=== PATIENT | female | born 1940 | race Caucasian/White ===

== ENCOUNTER → 2017-01-17 | Outpatient (CLI) | payer OTHER | LOC: FIMAGING 09:31 → EDSTATUS 09:32 | PROVIDERS: ATTEND Family Medicine | DX: K59.00 Constipation, unspecified (principal) ==

== ENCOUNTER 2017-12-11 20:51 | Inpatient (IN) | payer OTHER ==
[2017-12-11 21:43] LABS: PLATELET COUNT 151 10^3/uL (150-400)
--- NOTE | 2017-12-11 22:14 | EDPHY ---
H & P Stated Complaint: R abd pain, back pain, vomitting Time Seen by Provider: 12/11/17 22:01 HPI/ROS: CHIEF COMPLAINT: Right upper quadrant pain HISTORY OF PRESENT ILLNESS: Patient is a 77-year-old female who comes to the emergency department complaining of right upper quadrant pain that radiates to her back. It feels similar to her gallbladder pain accept her gallbladder [place] [address] Turner. She does have a history of renal failure and is on dialysis. She denies cardiac or pulmonary history. She has not had any urinary or vaginal symptoms. No diarrhea. She did vomit once this evening nonbloody. No fevers. REVIEW OF SYSTEMS: Constitutional: denies: chills, fever, recent illness, recent injury EENTM: denies: blurred vision, double vision, nose congestion Respiratory: denies: cough, shortness of breath Cardiac: denies: chest pain, irregular heart rate, lightheadedness, palpitations Gastrointestinal/Abdominal: See HPI Genitourinary: denies: dysuria, frequency, hematuria, pain Musculoskeletal: denies: joint pain, muscle pain Skin: denies: lesions, rash, jaundice, bruising Neurological: denies: headache, numbness, paresthesia, tingling, dizziness, weakness Hematologic/Lymphatic: denies: blood clots, easy bleeding, easy bruising Immunologic/allergic: denies: HIV/AIDS, transplant EXAM: GENERAL: Moderate distress HEAD: Atraumatic, normocephalic. EYES: Pupils equal round and reactive to light, extraocular movements intact, sclera anicteric, conjunctiva are normal. ENT: TMs normal, nares patent, oropharynx clear without exudates. Moist mucous membranes. NECK: Normal range of motion, supple without lymphadenopathy or JVD. LUNGS: Breath sounds clear to auscultation bilaterally and equal. No wheezes rales or rhonchi. HEART: Regular rate and rhythm without murmurs, rubs or gallops. ABDOMEN: Slightly distended, right upper quadrant tenderness, BACK: No CVA tenderness, no spinal tenderness, step-offs or deformities EXTREMITIES: Normal range of motion, no pitting or edema. No clubbing or cyanosis. NEUROLOGICAL: Cranial nerves II through XII grossly intact. Normal speech, normal gait. 5/5 strength, normal movement in all extremities, normal sensation PSYCH: Normal mood, normal affect. SKIN: Warm, dry, normal turgor, no visible rashes or lesions. Source: Patient Exam Limitations: No limitations - Personal History Current Tetanus Diphtheria and Acellular Pertussis (TDAP): Yes Tetanus Vaccine Date: 1999 - Medical/Surgical History Hx Asthma: No Hx Chronic Respiratory Disease: No Hx Diabetes: No Hx Cardiac Disease: No Hx Renal Disease: Yes Hx Cirrhosis: No Hx Alcoholism: No Hx HIV/AIDS: No Hx Splenectomy or Spleen Trauma: No Other PMH: PMH: recently diagnosed with kidney disease. PSH: hysterectomy, cholecystectomy - Family History Significant Family History: No pertinent family hx - Social History Smoking Status: Current every day smoker Alcohol Use: Sober Drug Use: None Constitutional: Initial Vital Signs Temperature (C) 36.7 C 12/11/17 21:03 Heart Rate 67 12/11/17 21:03 Respiratory Rate 18 12/11/17 21:03 Blood Pressure 115/91 H 12/11/17 21:03 O2 Sat (%) 89 L 12/11/17 21:03 O2 Delivery Mode Nasal Cannula O2 (L/minute) 2 Allergies/Adverse Reactions: Penicillins Allergy (Verified 12/11/17 21:03) Home Medications: Medication Instructions Recorded Cholecalciferol Vit D3 [Vitamin D3 1,000 units PO DAILY 08/06/15 (*)] Cyanocobalamin [Vitamin B12 (*)] 1,000 mcg PO DAILY 08/06/15 Glucosamine Sulfate [Glucosamine 500 mg PO DAILY 08/06/15 Sulfate 500 MG (*)] Levothyroxine [Synthroid 88 mcg 88 mcg PO DAILY06 08/06/15 (*)] Multivitamins [Multivitamin (*)] 1 each PO DAILY 08/06/15 Acetaminophen [Tylenol 325mg (*)] 325 - 650 mg PO Q6 PRN 01/27/16 Furosemide [Lasix 40 MG (*)] 40 mg PO DAILY 01/27/16 amLODIPine BESYLATE [Norvasc 5 mg 5 mg PO DAILY 01/27/16 (*)] Furosemide [Lasix 20 MG (*)] 20 mg PO DAILY 09/16/16 Iron 2 tab PO DAILY 09/16/16 Tums 500MG (*) 750 mg PO TIDMEAL 09/16/16 Medical Decision Making - Diagnostics EKG Interpretation: An EKG obtained and was read and documented in trace view. Please see trace view for full reading and report. Sinus rhythm, early right bundle branch block unchanged from previous Imaging Results: Imaging Impressions Abdomen CT 12/11/17 22:11 Impression: 1. Moderate obstructive uropathy in the right kidney and right ureter through the midpelvis with no visible etiology, possibly related to occult distal ureteral mass or bladder mass or possibly recently passed stone. This is age- indeterminate, new since September 2015. 2. Extensive diverticulosis without evidence of diverticulitis. 3. 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 4. Coronary artery atherosclerosis. 5. Additional findings as above. Findings discussed with ROSELINE BARRON 12/11/2017 at 23:08. Imaging: Discussed imaging studies w/ inbound call center representative Radiologist ED Course/Re-evaluation: We discussed the imaging and lab results thus far which are reassuring. She has dilated right renal ureter for unknown reasons. It is unknown if this is new or old. Her pain seems primarily right upper quadrant however. She states that it is feeling better. She has not received any pain medications. We are pending urinalysis. Her states that they would like to go home if possible. 12:30 a.m. the patient is feeling better . She has an obstructive uropathy on CT scan and pain in that region. I do not have an explanation for either. I recommended admission for further workup. Patient and understand and agree with this plan. Her service rig operator is Dr. Perry. I spoke with Dr. Cifuentes who will admit. 12:[address] Londono who will consult. Differential Diagnosis: Partial list of the Differential diagnosis considered include but were not limited to; retained biliary stone, kidney stone, urinary tract infection, bladder cancer and although unlikely based on the history and physical exam, I also considered cirrhosis, spontaneous peritonitis. - Data Points Laboratory Results: Laboratory Results 12/11/17 21:30 12/11/17 21:30 12/11/17 12/11/17 12/11/17 23:39 21:30 21:30 WBC RBC Hgb Hct MCV MCH MCHC RDW Plt Count MPV Neut % (Auto) Lymph % (Auto) [place] % (Auto) Eos % (Auto) Baso % (Auto) Nucleat RBC Rel Count Absolute Neuts (auto) Absolute Lymphs (auto) Absolute Monos (auto) Absolute Eos (auto) Absolute Basos (auto) Absolute Nucleated RBC Immature Gran % Immature Gran # PT 12.7 SEC SEC (12.0-15.0) INR 0.93 (0.83-1.16) APTT 35.4 SEC SEC (23.0-38.0) Sodium 141 mEq/L mEq/L (135-145) Potassium 4.3 mEq/L mEq/L (3.5-5.2) Chloride 103 mEq/L mEq/L (97-110) Carbon Dioxide 23 mEq/l mEq/l (22-31) Anion Gap 15 mEq/L mEq/L (8-16) BUN 41 mg/dL H mg/dL (7-23) Creatinine 5.6 mg/dL H mg/dL (0.6-1.0) Estimated GFR 7 Glucose 115 mg/dL H mg/dL (70-100) Calcium 9.8 mg/dL mg/dL (8.5-10.4) Total Bilirubin 0.4 mg/dL mg/dL (0.1-1.4) Conjugated Bilirubin 0.4 mg/dL mg/dL (0.0-0.5) Unconjugated Bilirubin 0.0 mg/dL mg/dL (0.0-1.1) AST 23 IU/L IU/L (14-46) ALT 32 IU/L IU/L (9-52) Alkaline Phosphatase 126 IU/L IU/L (38-126) Total Protein 7.3 g/dL g/dL (6.3-8.2) Albumin 3.9 g/dL g/dL (3.5-5.0) Lipase 214 IU/L IU/L (23-300) Urine Color YELLOW Urine Appearance HAZY Urine pH 9.0 H (5.0-7.5) Ur Specific [place] 1.019 (1.002-1.030) Urine Protein 2+ H (NEGATIVE) Urine Ketones NEGATIVE (NEGATIVE) Urine Blood NEGATIVE (NEGATIVE) Urine Nitrate NEGATIVE (NEGATIVE) Urine Bilirubin NEGATIVE (NEGATIVE) Urine Urobilinogen NEGATIVE EU EU (0.2-1.0) Ur Leukocyte Esterase NEGATIVE (NEGATIVE) Urine RBC 5-10 /hpf H /hpf (0-3) Urine WBC 3-5 /hpf H /hpf (0-3) Ur Epithelial Cells 4+ /lpf H /lpf (NONE-1+) Urine Mucus TRACE /lpf /lpf (NONE-1+) Urine Glucose NEGATIVE (NEGATIVE) 12/11/17 21:30 WBC 7.89 10^3/uL 10^3/uL (3.80-9.50) RBC 3.82 10^6/uL L 10^6/uL (4.18-5.33) Hgb 12.3 g/dL L g/dL (12.6-16.3) Hct 36.6 % L % (38.0-47.0) MCV 95.8 fL fL (81.5-99.8) MCH 32.2 pg pg (27.9-34.1) MCHC 33.6 g/dL g/dL (32.4-36.7) RDW 14.2 % % (11.5-15.2) Plt Count 151 10^3/uL 10^3/uL (150-400) MPV 9.3 fL fL (8.7-11.7) Neut % (Auto) 79.6 % H % (39.3-74.2) Lymph % (Auto) 11.3 % L % (15.0-45.0) [place] % (Auto) 6.0 % % (4.5-13.0) Eos % (Auto) 1.8 % % (0.6-7.6) Baso % (Auto) 1.0 % % (0.3-1.7) Nucleat RBC Rel Count 0.0 % % (0.0-0.2) Absolute Neuts (auto) 6.29 10^3/uL 10^3/uL (1.70-6.50) Absolute Lymphs (auto) 0.89 10^3/uL L 10^3/uL (1.00-3.00) Absolute Monos (auto) 0.47 10^3/uL 10^3/uL (0.30-0.80) Absolute Eos (auto) 0.14 10^3/uL 10^3/uL (0.03-0.40) Absolute Basos (auto) 0.08 10^3/uL 10^3/uL (0.02-0.10) Absolute Nucleated RBC 0.00 10^3/uL 10^3/uL (0-0.01) Immature Gran % 0.3 % % (0.0-1.1) Immature Gran # 0.02 10^3/uL 10^3/uL (0.00-0.10) PT INR APTT Sodium Potassium Chloride Carbon Dioxide Anion Gap BUN Creatinine Estimated GFR Glucose Calcium Total Bilirubin Conjugated Bilirubin Unconjugated Bilirubin AST ALT Alkaline Phosphatase Total Protein Albumin Lipase Urine Color Urine Appearance Urine pH Ur Specific [place] Urine Protein Urine Ketones Urine Blood Urine Nitrate Urine Bilirubin Urine Urobilinogen Ur Leukocyte Esterase Urine RBC Urine WBC Ur Epithelial Cells Urine Mucus Urine Glucose Medications Given: Discontinued Medications Hydromorphone HCl (Dilaudid) 0.5 mg IVP EDNOW ONE Stop: 12/11/17 23:41 Last Admin: 12/11/17 23:58 Dose: 0.5 mg Departure - Departure Disposition: [facility] Inpatient Acute Clinical Impression: Ureteral obstruction, right Abdominal pain Qualifiers: Abdominal location: right upper quadrant Qualified Code(s): R10.11 - Right upper quadrant pain Condition: Fair
[2017-12-11] MEDS ORDERED: IOPAMIDOL (ISOVUE-300) 100 ML BTL ONE (22:21)
[2017-12-11 22:22] LABS: INR 0.93 (0.83-1.16); PROTIME(PATIENT) 12.7 SEC (12.0-15.0)
--- NOTE | 2017-12-11 22:50 | CPEKG ---
Heart Rate: 71 RR Interval: 845 P-R Interval: 212 QRSD Interval: 134 QT Interval: 436 QTC Interval: 474 P [place]: 136 QRS [place]: -167 T Wave [place]: 139 EKG Severity - ABNORMAL ECG - EKG Impression: SINUS OR ECTOPIC ATRIAL RHYTHM EKG Impression: IVCD, CONSIDER ATYPICAL RBBB EKG Impression: Similar to previous Electronically Signed By: Domingo Spear 11-Dec-2017 22:59:10
[2017-12-11] MEDS ORDERED: HYDROmorphONE/DILAUDID 1 MG/ML INJ IVP ONE (23:40)
[2017-12-12] MEDS ORDERED: ONDANSETRON 4 MG/2 ML VIAL IVP PRN (01:34)
[2017-12-12] MEDS ORDERED: ACETAMINOPHEN 325 MG TAB PO PRN (01:34)
[2017-12-12] MEDS ORDERED: HYDROCODONE/APAP 5/325 TAB PO PRN (01:41)
[2017-12-12] MEDS ORDERED: HYDROmorphone HCL/NS 0.5 MG/ML SYR IVP PRN (01:41)
[2017-12-12 05:00] LABS: PLATELET COUNT 135 10^3/uL (150-400)
--- NOTE | 2017-12-12 07:52 | PDGENHP ---
History and Physical - Chief Complaint Right flank pain - History of Present Illness Source-patient provides history appears reliable. EMR reviewed and case discussed with ED provider. 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 Patient reports that she has been having intermittent cramping type pain. Evening before admission patient reports that she was feeling particularly unwell. She went to go lay down but continued to have worsening abdominal/flank pain. Patient denies any fevers chills. She did have 1 episode of vomiting without any hematemesis. Patient has not had any diarrhea, constipation, melena, nor hematochezia. Patient does note that 2- 3 days ago she did have some dysuria but denies any gross hematuria. She does continue to make some amount of urine. Patient's pain became unbearable and she presented to the emergency department. History Information - Allergies/Home Medication List Allergies/Adverse Reactions: Penicillins Allergy (Verified 12/11/17 21:03) Home Medications: Cholecalciferol Vit D3 [Vitamin D3 (*)] 1,000 units PO DAILY 08/06/15 [Last Taken 01/26/16] Cyanocobalamin [Vitamin B12 (*)] 1,000 mcg PO DAILY 08/06/15 [Last Taken ] Glucosamine Sulfate [Glucosamine Sulfate 500 MG (*)] 500 mg PO DAILY 08/06/15 [ Last Taken 01/26/16] Levothyroxine [Synthroid 88 mcg (*)] 88 mcg PO DAILY06 08/06/15 [Last Taken 10/01] Multivitamins [Multivitamin (*)] 1 each PO DAILY 08/06/15 [Last Taken 01/26/16] Acetaminophen [Tylenol 325mg (*)] 325 - 650 mg PO Q6 PRN 01/27/16 [Last Taken ] Furosemide [Lasix 40 MG (*)] 40 mg PO DAILY 01/27/16 [Last Taken 01/27/16] amLODIPine BESYLATE [Norvasc 5 mg (*)] 5 mg PO DAILY 01/27/16 [Last Taken ] Furosemide [Lasix 20 MG (*)] 20 mg PO DAILY 09/16/16 [Last Taken Unknown] Iron 2 tab PO DAILY 09/16/16 [Last Taken Unknown] Tums 500MG (*) 750 mg PO TIDMEAL 09/16/16 [Last Taken Unknown] I have personally reviewed and updated: family history, medical history, social history, surgical history - Past Medical History Additional medical history: CRF 2/2 glomerulosclerosis on HD MWF. Tears history of breast cancer status post mastectomy and chemotherapy in remission withdrawal, benign essential hypertension, edema, hypothyroidism, osteoporosis, anemia. - Surgical History Additional surgical history: Hysterectomy, cholecystectomy in 2015, av fistula right forearm, bilateral cataract extraction with lens placement with additional laser on the left. - Family History Additional family history: No family history of CKD. Older sister with history of colon cancer . Younger sister with history of breast cancer. - Social History Smoking Status: Current every day smoker Tobacco Use: Cigarettes (Half pack per day since age 12, started smoking H 8) Alcohol Use: Sober Drug Use: None Additional social history: Patient is for 61 years. She continues to smoke half pack per day since the age of 12, but has been smoking since age 7. no etoh or drugs. COR - FULL for 3 cycles. Review of Systems Review of Systems: ROS: 10pt was reviewed & negative except for what was stated in HPI & below Constitutional: Reports: no symptoms. Denies: chills, fever EENMT: Reports: nose congestion (Chronic rhinorrhea). Denies: sore throat Cardiac: Reports: no symptoms Respiratory: Reports: no symptoms Gastrointestinal: Reports: vomitting (X1 episode), abdominal pain (See HPI), nausea. Denies: abdominal distention, diarrhea Genitourinary: Reports: dysuria (Resolved to 3 days ago.). Denies: frequency, hematuria Muscolosketal: Reports: joint pain (" my bones hurt"), muscle pain Skin: Reports: no symptoms. Denies: rash Neurological: Denies: headache, numbness, tingling, weakness Hematologic/Lymphatic: Denies: blood clots Physical Exam Physical Exam: Selected Entries 12/11/17 21:03 Blood Pressure Automatic Method Heart Rate 67 Respiratory 18 Rate O2 Sat (%) 89 L Temperature (C) 36.7 C Blood Pressure 115/91 H Mean Arterial 99 Pressure (MAP) O2 Delivery Room Air Mode Temperature Oral Source Temp Pulse Resp BP Pulse Ox 36.7 C 59 L 16 127/54 H 94 12/12/17 07:20 12/12/17 04:38 12/12/17 07:20 12/12/17 07:20 12/12/17 07:20 O2 (L/minute) 1.5 Constitutional: no apparent distress, chronically ill appearing, uncomfortable ( Patient lays still. Increased stress with CVA testing the abdominal palpation.) Eyes: PERRL (Lens reflex appreciated bilaterally. He), anicteric sclera, EOMI Ears, Nose, Mouth, Throat: moist mucous membranes, poor dentition (Edentulous.) Cardiovascular: regular rate and rhythym, No edema Peripheral Pulses: 2+: dorsalis-pedis (R), dorsalis-pedis (L) Respiratory: no respiratory distress, no rales or rhonchi, clear to auscultation Gastrointestinal: normoactive bowel sounds, tenderness (The right lateral abdomen), other (Obese abdomen.), No ascites, No herron's sign, No distension Genitourinary: no bladder tenderness, other, No brush in urethra Skin: warm, normal color, no rashes or abrasions Musculoskeletal: full muscle strength, generalized weakness (The patient requires some assistance sitting up.), No joint tenderness Neurologic: AAOx3, sensation intact bilaterally, CN II-XII Intact, other ( Nonfocal exam), No facial droop Psychiatric: interacting appropriately, not encephalopathic, thought process linear, anxious, No depressed Lab Data & Imaging Review 12/12/17 04:36 12/12/17 04:36 WBC 8.55 10^3/uL (3.80-9.50) 12/12/17 04:36 RBC 3.58 10^6/uL (4.18-5.33) L 12/12/17 04:36 Hgb 11.7 g/dL (12.6-16.3) L 12/12/17 04:36 Hct 34.3 % (38.0-47.0) L 12/12/17 04:36 MCV 95.8 fL (81.5-99.8) 12/12/17 04:36 MCH 32.7 pg (27.9-34.1) 12/12/17 04:36 MCHC 34.1 g/dL (32.4-36.7) 12/12/17 04:36 RDW 14.3 % (11.5-15.2) 12/12/17 04:36 Plt Count 135 10^3/uL (150-400) L 12/12/17 04:36 MPV 9.3 fL (8.7-11.7) 12/12/17 04:36 Neut % (Auto) 75.5 % (39.3-74.2) H 12/12/17 04:36 Lymph % (Auto) 14.9 % (15.0-45.0) L 12/12/17 04:36 [place] % (Auto) 7.6 % (4.5-13.0) 12/12/17 04:36 Eos % (Auto) 0.8 % (0.6-7.6) 12/12/17 04:36 Baso % (Auto) 0.8 % (0.3-1.7) 12/12/17 04:36 Nucleat RBC Rel Count 0.0 % (0.0-0.2) 12/12/17 04:36 Absolute Neuts (auto) 6.46 10^3/uL (1.70-6.50) 12/12/17 04:36 Absolute Lymphs (auto) 1.27 10^3/uL (1.00-3.00) 12/12/17 04:36 Absolute Monos (auto) 0.65 10^3/uL (0.30-0.80) 12/12/17 04:36 Absolute Eos (auto) 0.07 10^3/uL (0.03-0.40) 12/12/17 04:36 Absolute Basos (auto) 0.07 10^3/uL (0.02-0.10) 12/12/17 04:36 Absolute Nucleated RBC 0.00 10^3/uL (0-0.01) 12/12/17 04:36 Immature Gran % 0.4 % (0.0-1.1) 12/12/17 04:36 Immature Gran # 0.03 10^3/uL (0.00-0.10) 12/12/17 04:36 PT 12.7 SEC (12.0-15.0) 12/11/17 21:30 INR 0.93 (0.83-1.16) 12/11/17 21:30 APTT 35.4 SEC (23.0-38.0) 12/11/17 21:30 Sodium 143 mEq/L (135-145) 12/12/17 04:36 Potassium 5.1 mEq/L (3.5-5.2) 12/12/17 04:36 Chloride 106 mEq/L (97-110) 12/12/17 04:36 Carbon Dioxide 25 mEq/l (22-31) 12/12/17 04:36 Anion Gap 12 mEq/L (8-16) 12/12/17 04:36 BUN 44 mg/dL (7-23) H 12/12/17 04:36 Creatinine 5.8 mg/dL (0.6-1.0) H 12/12/17 04:36 Estimated GFR 7 12/12/17 04:36 Glucose 76 mg/dL (70-100) 12/12/17 04:36 Calcium 9.4 mg/dL (8.5-10.4) 12/12/17 04:36 Phosphorus 4.4 mg/dL (2.5-4.5) 12/12/17 04:36 Magnesium 2.6 mg/dL (1.6-2.3) H 12/12/17 04:36 Total Bilirubin 0.4 mg/dL (0.1-1.4) 12/11/17 21:30 Conjugated Bilirubin 0.4 mg/dL (0.0-0.5) 12/11/17 21:30 Unconjugated Bilirubin 0.0 mg/dL (0.0-1.1) 12/11/17 21:30 AST 23 IU/L (14-46) 12/11/17 21:30 ALT 32 IU/L (9-52) 12/11/17 21:30 Alkaline Phosphatase 126 IU/L (38-126) 12/11/17 21:30 Total Protein 7.3 g/dL (6.3-8.2) 12/11/17 21:30 Albumin 3.9 g/dL (3.5-5.0) 12/11/17 21:30 Lipase 214 IU/L (23-300) 12/11/17 21:30 Urine Color YELLOW 12/11/17 23:39 Urine Appearance HAZY 12/11/17 23:39 Urine pH 9.0 (5.0-7.5) H 12/11/17 23:39 Ur Specific [place] 1.019 (1.002-1.030) 12/11/17:39 Urine Protein 2+ (NEGATIVE) H 12/11/17 23:39 Urine Ketones NEGATIVE (NEGATIVE) 12/11/17:39 Urine Blood NEGATIVE (NEGATIVE) 12/11/17: Urine Nitrate NEGATIVE (NEGATIVE) 12/11/17: Urine Bilirubin NEGATIVE (NEGATIVE) 12/11/17:39 Urine Urobilinogen NEGATIVE EU (0.2-1.0) 12/11/17 23:39 Ur Leukocyte Esterase NEGATIVE (NEGATIVE) 12/11/17:39 Urine RBC 5-10 /hpf (0-3) H 12/11/17:39 Urine WBC 3-5 /hpf (0-3) H 12/11/17:39 Ur Epithelial Cells 4+ /lpf (NONE-1+) H 12/11/17:39 Urine Mucus TRACE /lpf (NONE-1+) 12/11/17:39 Urine Glucose NEGATIVE (NEGATIVE) 12/11/17:39 Visualized and Interpreted EKG results: Yes EKG additional interpertation: NSR 70s. IVCD. no acute ST changes. Assessment & Plan Assessment: Abdominal pain (Acute)/right flank pain-patient with a reported history of some dysuria approximately 2-3 days ago. Her UA at this time is not significant for evidence of an infectious process. She is afebrile without leukocytosis. Her CT abdomen pelvis however does report some perinephric stranding but no identification of a ureteral or bladder stone. She also has noted diverticulosis without evidence of acute diverticulitis. Hydronephrosis - no evidence of obstructive process on CT identified. Some perinephric stranding is noted. Patient is afebrile without leukocytosis. Will hold off on any antibiotic therapy. Nephrology and Urology Services were consulted from the emergency department. Diverticulosis - CT negative for evidence of acute diverticulitis. Right renal mass-benign angiomyolipoma stable CRD on HD - nephrology consulted from the emergency department. Patient due for dialysis today. Benign essential hypertension-blood pressures at this time are acceptable. Resume patient's home medications. Hypothyroidism-resume levothyroxine FEN - SLIV. electrolyte monitoring and replacement if needed. NPO for now pending nephrology/urology input. PPX - SCDs. holding anticoagulation pending specialist evaluation. COR - FULL. patient does not want more than 10 minutes CPR. Dispo - patient admitted observation status on medical floor at this time pending further recommendations.
--- NOTE | 2017-12-12 12:43 | GCON ---
[f rep st] CONSULTATION REFERRING PHYSICIAN: Cesilia Cifuentes MD REASON FOR CONSULTATION: End-stage renal disease. HISTORY OF PRESENT ILLNESS: The patient is a 77-year-old female who receives hemodialysis on Mondays , Wednesdays, and Fridays at [facility]. She has been on dialysis for approximately 1 y ear. Yesterday she developed acute onset of right-sided flank pain that did not resolve after taking her typical MiraLAX. She came to the emergency department. Her pain is much better today. 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 Dialysis has been going fine. She uses a fistula with the buttonhole technique. She denies any fevers, chills, dysuria, but did see some b lood in her urine. She has not had any blood in her stools or dark tarry stools. She has had a coup le of bowel movements since yesterday. Her CT scan did not comment on any evidence of dilated bowel loops or constipation. She currently has no complaints. PAST MEDICAL HISTORY: See HPI; breast cancer, status post left mastectomy and axillary lymph node di ssection, as well as chemotherapy, hypertension, hypothyroidism, osteoporosis, anemia. SURGICAL HISTORY: Hysterectomy, cholecystectomy, right forearm AV fistula, cataracts. SOCIAL HISTORY: She smokes every day and has most of her life. She is and lives at home wit h her . No alcohol or drugs. FAMILY HISTORY: Noncontributory. REVIEW OF SYSTEMS: See HPI. She has some mild arthritis. Otherwise, 10-system review negative in d etail. PHYSICAL EXAMINATION: VITAL SIGNS: 131/55, pulse 55, respires 16, satting 94% on 1.5 L nasal cannul a. Temp 36.8. GENERAL: Very pleasant, comfortable, well-appearing female who is mildly ov erweight, lying in bed. NEUROLOGIC: She is awake and alert. No asterixis. No gross focal deficits . HEAD: Atraumatic, normocephalic. EYES: No scleral icterus. ORAL MUCOSA: Moist. NECK: Soft a nd supple without lymphadenopathy. HEART: Regular rate and rhythm without murmurs, gallops, rubs. LUNGS: Clear to auscultation bilaterally. ABDOMEN: Soft and nontender. No right upper quadrant te nderness. No rebound or guarding. She has mild right costovertebral angle tenderness. LOWER EXTREM ITIES: Without edema. UPPER EXTREMITIES: She has a right forearm AV fistula with a good thrill. S KIN: No rashes, but slightly thin. MUSCULOSKELETAL: No gross joint swelling or deformities. No ob vious arthritic or gouty nodules on her hands. LABORATORY DATA: Sodium is 143, potassium 5.1, CO2 is 25, BUN 44, creatinine 5.8. Magnesium 2.6. White count is 8.5, hemoglobin 11.7, platelets 135. Urinalysis: 5-10 red cells, 3-5 white cells, lots of epithelial cells, negative for nitrites, leukoc yte esterase, pH was 9. IMPRESSION AND PLAN: 1. End-stage renal disease. We will dialyze her today per her routine Tuesday[facility] Tuesday[facility] She has a well-functioning right forearm arteriovenous fistula that feels a little bit frail, but is suitable. 2. Right flank pain. The etiology is unclear. She does have hydronephrosis on her CT scan, but I a m doubtful this is the cause. I would wonder about gas pains related to a meal that she ate yesterda y. Her pain has now resolved. No evidence of urinary tract infection on her urinalysis. She did bacon ve some mild perinephric stranding of uncertain significance. She needs urological evaluation. Give n her absence of systemic symptoms, I would not treat her empirically for infection at this time. James moran has had her gallbladder out in the past. She could have musculoskeletal pain. She has diverticulo sis, but no diverticulitis. 3. Hypertension. Blood pressure appears to be well controlled. 4. Anemia. Hemoglobin is above target. She does not require Procrit at this time. /[id number]/MODL
--- NOTE | 2017-12-12 15:39 | ASMTCMCOM ---
CM Note CM Note Notes: Pt has been admitted with R flank pain. Hx ESRD, dialysis MWF. D/C needs unclear at this time. CM will follow. Date Signed: 12/12/2017 03:38 PM Electronically Signed By:MARIBELL Fierro
[2017-12-12] MEDS ORDERED: DICYCLOMINE 10 MG CAP PO PRN (18:58)
--- NOTE | 2017-12-12 19:08 | HOSPPROG ---
Hospitalist Progress Note Assessment/Plan: Prolonged service, in addition to the time originally spent by Dr.Elaine Cifuentes, direct patient care, [id number] with patient at bedside, for 32 min, from 2: 30 p.m. Until 3:02 p.m., addressing the following: -the acute abdominal pain which was the presenting symptom has reoccurred, and is located in the right flank -physical exam demonstrates tenderness along the deep right flank almost adjacent to the right paraspinal muscles, but not completely over the lumbar spine, with tenderness over the right pelvic brim as well as the right mid lower quadrant, she has full range of motion of the right hip, without any pain , heart rhythm is regular, 2/6 systolic murmur at the sternum and apex, lungs are clear to auscultation bilaterally, bowel sounds are present, she is alert awake oriented x3 -CT demonstrated right hydronephrosis with perinephric stranding, and abdominal x-ray demonstrated no focal stone -I discussed with Dr. 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 Kong Hayward, he does not see a ureteral mass, but he believes that that would be the most likely cause of her proximal hydronephrosis and ureteral dilation, and is recommending CT urogram when she cycle through hemodialysis -awaiting consultation by Dr. Antonio Tran, will discuss in a.m. Whether they would recommend visualizing or performing noninvasive radiographic evaluation -appreciate ongoing nephrology consultation, receiving hemodialysis Tuesday -does not appear that the patient has an overt infection, will hold on any antibiotics -will continue monitor daily electrolytes -will continue to treat supportively and continue her home medications Objective: Vital Signs Temp Pulse Resp BP Pulse Ox 37.1 C 67 16 132/56 H 94 12/12/17 16:00 12/12/17 16:00 12/12/17 16:00 12/12/17 16:00 12/12/17 16:00 Laboratory Results 12/12/17 04:36 12/12/17 04:36 12/11/17 12/12/17 12/13/17 05:59 05:59 05:59 Intake Total 350 Balance 350 PT 12.7 SEC (12.0-15.0) 12/11/17 21:30 INR 0.93 (0.83-1.16) 12/11/17 21:30 ICD10 Worksheet Patient Problems: Problems Problem Status Onset Acute gallstone pancreatitis Acute Abdominal pain Acute Ureteral obstruction, right Acute
[2017-12-12] MEDS ORDERED: FUROSEMIDE 40 MG TAB PO SCH (21:00)
[2017-12-13] MEDS ORDERED: LEVOTHYROXINE 88 MCG TAB PO SCH (06:00)
[2017-12-13] MEDS: CHOLECALCIFEROL VIT D3 1,000 UNITS TAB PO SCH ×2 (07:55→10:06)
[2017-12-13] MEDS: FUROSEMIDE 80 MG TAB PO SCH ×2 (07:55→10:04)
[2017-12-13] MEDS: SEVELAMER CARBONATE 800 MG PO SCH ×2 (07:55→10:05)
--- NOTE | 2017-12-13 08:15 | SOAPPROG ---
SOAP Progress Note Assessment/Plan: Assessment: Ureteral obstruction, right Acute CAT scan noted and suggest cysto and retrograde ureteropyelogram Plan: as discussed 12/13/17 08:14 Subjective: pain discussed Objective: Vital Signs Temp Pulse Resp BP Pulse Ox 36.9 C 64 17 127/49 H 94 12/13/17 03:57 12/13/17 03:57 12/13/17 03:57 12/13/17 03:57 12/13/17 03:57 Laboratory Results 12/12/17 04:36 12/13/17 04:45 12/12/17 12/13/17 12/14/17 05:59 05:59 05:59 Intake Total 350 Output Total 100 150 Balance 250 -150 PT 12.7 SEC (12.0-15.0) 12/11/17 21:30 INR 0.93 (0.83-1.16) 12/11/17 21:30 Physical Exam - Physical Exam General Appearance: alert Respiratory: No respiratory distress Abdomen: soft Neuro/Psych: alert, oriented x 3 ICD10 Worksheet Patient Problems: Problems Problem Status Onset Abdominal pain Acute Ureteral obstruction, right Acute Acute gallstone pancreatitis Acute
[2017-12-13 08:27] VITALS: RESP 16
[2017-12-13] MEDS ORDERED: GLUCOSAMINE SULF 500 MG CAP PO SCH (09:00)
[2017-12-13] MEDS ORDERED: CYANO/VITAMIN B12 1000 MCG TAB PO SCH (09:00)
[2017-12-13] MEDS ORDERED: Herbals/Supplements -Info Only PO SCH (09:00)
[2017-12-13 11:49] VITALS: BP 126/66; PULSE 67; TEMP 98.6; O2SAT 89
--- NOTE | 2017-12-13 12:28 | ASMTCMCOM ---
CM Note CM Note Notes: Pt medically stable for d/c, no CM d/c needs identified. Date Signed: 12/13/2017 12:27 PM Electronically Signed By:MARIBELL Grande
--- NOTE | 2017-12-13 20:13 | PDDCSUM ---
Discharge Summary Discharge Summary: DISCHARGE SUMMARY FOLLOW-UP ITEMS: Schedule cystoscopy tomorrow DATE OF ADMISSION: 12/11/2017 DATE OF DISCHARGE: 12/13/2017 DISCHARGE DIAGNOSES: 1. Acute right-sided hydronephrosis 2. Acute abdominal pain 3. End-stage renal disease on hemodialysis CONSULTATIONS: Urology, Nephrology PROCEDURES / IMAGING: Abdominal CT demonstrating no evidence of stone, right-sided hydronephrosis and mild ureteral distension, x-ray demonstrating no stones CHIEF COMPLAINT: Acute abdominal pain SUBJECTIVE: Patient reports no abdominal pain at time of discharge, eating and drinking normally PHYSICAL EXAM ON DISCHARGE: Systolic blood pressure is 120-130, heart rate 60, afebrile overnight, abdomen is soft, very minimally tender in right CVA/flank, bowel sounds are present, lungs are clear to auscultation bilaterally LABS ON DISCHARGE: Creatinine 3.3, the potassium 3.9, urinalysis with red blood cells and white blood cells HOSPITAL COURSE BY PROBLEM: The patient presented with acute right-sided abdominal pain secondary to likely acute ureteral obstruction with resultant acute hydronephrosis. The exact cause is unclear, but a cystoscopy was recommended, and this will be performed as an outpatient now that her symptoms have been well managed. The patient has been dialyzed during her hospitalization and will undergo hemodialysis as an outpatient tomorrow, followed by surgery. She has as needed oxycodone prescribed as well as Zofran. She required inpatient hospitalization to ensure that her abdominal pain was not worsening and she was not developing urinary tract infection given the likely intra-ureteral obstruction. As she demonstrated neither of these, she will be safely discharged with outpatient follow-up. DISCHARGE MEDICATIONS: Please see official discharge medication reconciliation sheet in chart , continue home medications with the addition of as needed oxycodone, as needed Zofran. DISCHARGE INSTRUCTIONS: Please follow up for cystoscopy tomorrow. TIME SPENT: Greater than 30 minutes were spent on direct patient care, as well as discharge planning and preparation.
[2017-12-13] MEDS ORDERED: FUROSEMIDE 80 MG TAB PO SCH (21:00)
[2017-12-14] MEDS ORDERED: LEVOTHYROXINE 88 MCG TAB PO SCH (06:00)
[2017-12-14] MEDS ORDERED: fentaNYL 100 MCG/2 ML INJ ONE (14:22)
[2017-12-14] MEDS ORDERED: PROPOFOL 200 MG/20 ML VIAL ONE (14:23)
[2017-12-14] MEDS ORDERED: MIDAZOLAM 2 MG/2 ML VIAL ONE (14:24)
[2017-12-14] MEDS ORDERED: ONDANSETRON 4 MG/2 ML VIAL ONE (14:58)
[2017-12-14] MEDS ORDERED: METOCLOPRAMIDE 10 MG/2 ML VIAL ONE (14:58)
[2017-12-14] MEDS ORDERED: LIDOCAINE 2% JELLY 5 ML TUBE ONE (14:59)
== END 2017-12-13 12:17 | disposition home or self-care (01) | DRG 694 ==
LOC: F3N 12-12 01:27 → OBSVTOIN 12-12 01:35
PROVIDERS: ADMIT Family Medicine; ATTEND Family Medicine
PROC: 5A1D70Z Performance of Urinary Filtration, Intermittent, Less than 6 Hours Per Day (ICD-10-PCS; principal; 2017-12-12)
DX: N13.1 Hydronephrosis with ureteral stricture, not elsewhere classified (principal); I12.0 Hypertensive chronic kidney disease with stage 5 chronic kidney disease or end stage renal disease; N18.6 End stage renal disease; E03.9 Hypothyroidism, unspecified; M81.0 Age-related osteoporosis without current pathological fracture; Z72.0 Tobacco use; Z99.2 Dependence on renal dialysis; Z85.3 Personal history of malignant neoplasm of breast; Z90.10 Acquired absence of unspecified breast and nipple
CPT/HCPCS: 96374; 97161-GP; J1170; J2250; J2405; J2704; J2765; J3010; Q9967

== ENCOUNTER 2017-12-14 13:00 | Day surgery (SDC) | payer OTHER ==
[2017-12-14] MEDS ORDERED: LR 1,000 ML IV ONE (13:11)
[2017-12-14] MEDS ORDERED: LIDOCAINE 1% 2 ML INJ ID PRN (13:11)
[2017-12-14] MEDS ORDERED: NS 500 ML IV SCH (13:30)
[2017-12-14] MEDS ORDERED: CLINDAMYCIN 900 MG/DEXTROSE 50 ML IV ONE (13:50)
[2017-12-14 13:51] VITALS: PULSE 68
--- NOTE | 2017-12-14 14:10 | GHP ---
[f rep st] PREOP HISTORY AND PHYSICAL DATE OF ADMISSION: 12/14/2017 ADMISSION DIAGNOSIS: Right hydronephrosis. HISTORY OF PRESENT ILLNESS: This is a 77-year-old lady who has end-stage renal disease on dialysis, who was admitted to the hospital several days ago because of abdominal/flank pain on the right side a nd she had a CAT scan that revealed possible hydronephrosis and no stone. The question is does she h ave some lesion at the distal ureter. She is admitted for cystoscopy and ureteroscopy for assessment of that situation. ALLERGIES: Penicillin. HOME MEDICATIONS: Cholecalciferol, cyanocobalamin, glucosamine, levothyroxine, multivitamin, acetami nophen, furosemide, amlodipine, and Tums. I personally reviewed her previous family history, medical history, social history and surgical histo ry. She has chronic renal failure on dialysis Tuesday, Tuesday, Tuesday, she had a mastectomy with c hemotherapy, she had osteoporosis, hypothyroidism, and edema. Past surgeries have been a cholecystec kristin, hysterectomy, AV fistula right forearm, and cataract extraction. Family history is sister of colon cancer and she has a younger sister with breast cancer. She d oes smoke tobacco. Her alcohol use is not documented. REVIEW OF SYSTEMS: CARDIORESPIRATORY: Negative. GI: Negative. ENDOCRINE: Negative. PHYSICAL EXAMINATION: VITAL SIGNS: Stable. CHEST: Clear. HEART: Regular rate and rhythm. ABDOM EN: Normal. No organomegaly, rebound or guarding. EXTREMITIES: Lower extremities are normal. PLAN: She is admitted for the right ureteroscopy. /[id number]/MODL
[2017-12-14] MEDS ORDERED: LIDOCAINE 2% JELLY 20 ML (UROJECT) ONE (14:15)
[2017-12-14] MEDS ORDERED: IOPAMIDOL (ISOVUE-M 300) 15 ML VIAL ONE (14:15)
--- NOTE | 2017-12-14 14:19 | PDANEPAE ---
ANE Past Medical History - Cardiovascular History Hx Hypertension: Yes Hx Arrhythmias: No Hx Chest Pain: No Hx Coronary Artery / Peripheral Vascular Disease: No Hx CHF / Valvular Disease: No Hx Palpitations: No Cardiovascular History Comment: HEART MURMUR - Pulmonary History Hx COPD: No Hx Asthma/Reactive Airway Disease: No Hx Recent Upper Respiratory Infection: No Hx Oxygen in Use at Home: No Hx Sleep Apnea: No Sleep Apnea Screening Result - Last Documented: Negative - Neurologic History Hx Cerebrovascular Accident: No Hx Seizures: No Hx Dementia: No Neurologic History Comment: EPILEPSY AGO. OFF MEDICATION 3 YRS - Endocrine History Hx Diabetes: No Endocrine History Comment: HYPOTHYROID - Renal History Hx Renal Disorders: Yes Renal History Comment: htn chronic kidney disease - Liver History Hx Hepatic Disorders: No - Neurological & Psychiatric Hx Hx Neurological and Psychiatric Disorders: Yes Neurological / Psychiatric History Comment: epilepsy - Cancer History Hx Cancer: Yes Cancer History Comment: BREAST CA LEFT MASTECTOMY 05 w/ lymph nodes - Congenital Disorder History Hx Congenital Disorders: Yes Congenital History Comment: heart murmur - GI History Hx Gastrointestinal Disorders: Yes Gastrointestinal History Comment: gall stones - Other Health History Other Health History: MAGDI,anemia, thyroid prob ,eczema dehydration, osteoarthritis - Chronic Pain History Chronic Pain: No (hips and back) - Surgical History Prior Surgeries: MAGDI 2016 ANE Review of Systems Review of Systems: ANE Patient History - Allergies Allergies/Adverse Reactions: Penicillins Allergy (Verified 12/11/17 21:03) - Home Medications Home Medications: Cholecalciferol Vit D3 [Vitamin D3 (*)] 1,000 units PO DAILY 08/06/15 [Last Taken 12/14/17] Cyanocobalamin [Vitamin B12 (*)] 1,000 mcg PO DAILY 08/06/15 [Last Taken ] Glucosamine Sulfate [Glucosamine Sulfate 500 MG (*)] 500 mg PO DAILY 08/06/15 [ Last Taken 12/14/17] Levothyroxine [Synthroid 88 mcg (*)] 88 mcg PO DAILY06 08/06/15 [Last Taken ] Furosemide [Lasix 40 MG (*)] 80 mg PO HS 01/27/16 [Last Taken 1 Day Ago ~] Furosemide [Lasix 80 MG (*)] 80 mg PO DAILY 12/12/17 [Last Taken 12/14/17] Herbals/Supplements -Info Only 1 each PO DAILY 12/12/17 [Last Taken 12/14/17] Sevelamer Carbonate [Renvela] 2,400 mg PO TIDMEAL 12/12/17 [Last Taken 12/14/17] C/E/Zn/Cu/OM3/DHA/EPA/LUT/ZEAX [Preservision Areds 2 Softgel] 1 each PO DAILY [Last Taken 12/14/17] - NPO status NPO Since - Liquids (Date): 12/14/17 NPO Since - Liquids (Time): 05:00 NPO Since - Solids (Date): 12/13/17 NPO Since - Solids (Time): 15:00 - Smoking Hx Smoking Status: Current every day smoker - Family Anes Hx Family Hx Anesthesia Complications: NONE ANE Labs/Vital Signs - Vital Signs Blood Pressure: 137/66 Heart Rate: 68 Respiratory Rate: 14 O2 Sat (%): 90 Height: 149.86 cm Weight: 60.972 kg ANE Physical Exam - Airway Mallampati Score: Class 2 - ASA Status ASA Status: IV ANE Anesthesia Plan Anesthesia Plan: GA w LMA
--- NOTE | 2017-12-14 15:04 | POSTOPPROG ---
Post Op Note Date of Operation: 12/14/17 Surgeon: Antonio Tran Anesthesiologist: REYNA Anesthesia: LMA Pre-op Diagnosis: rt hydro Procedure: ureteroscopy stent Inf/Abcess present in the surg proc area at time of surgery?: No EBL: Minimal Drains: Other (stent) Specimen(s): none--dictated
[2017-12-14] MEDS ORDERED: fentaNYL 100 MCG/2 ML INJ IVP PRN (15:12)
[2017-12-14] MEDS ORDERED: NALOXONE HCL 0.4 MG/ML INJ IVP PRN (15:12)
[2017-12-14] MEDS ORDERED: PROMETHAZINE HCL 25 MG/ML INJ IVP PRN (15:12)
--- NOTE | 2017-12-14 15:14 | POSTANESTH ---
Post Anesthetic Evaluation Cardiovascular Status: Similar to Pre-Op Cond Respiratory Status: Normal, Stable Level of Consciousness/Mental Status: Can Participate in Eval Pain Control: Adequate, Prn Tx Ordered Nausea/Vomiting Control: Adequate, Prn Tx Ordered Complications Possibly Related to Anesthesia: None Noted
--- NOTE | 2017-12-14 15:15 | GOP ---
[f rep st] OPERATIVE REPORT DATE OF OPERATION: 12/14/2017 SURGEON: Antonio Tran MD ANESTHESIA: General anesthesia. ANESTHESIOLOGIST: Justo Saunders MD. PREOPERATIVE DIAGNOSIS: Right hydronephrosis, possible distal ureteral obstruction. POSTOPERATIVE DIAGNOSIS: Right hydronephrosis, possible distal ureteral obstruction. PROCEDURE PERFORMED: Cystoscopy, retrograde ureteral pyelogram, dilation of ureter, ureteroscopy, pl acement of the stent. FINDINGS: ESTIMATED BLOOD LOSS: Less than 5 mL. She tolerated the procedure well. DESCRIPTION OF PROCEDURE: The patient underwent general anesthesia, prepped and draped in normal gina rile fashion in the dorsal lithotomy position. The urethra normal. Bladder had no tumor, stones, fo reign bodies, or diverticula. The right ureteral orifice was cannulated with a [place] catheter. Re trograde revealed some mild narrowing of the distal ureter, but no filling defect. I dilated the ure ter by passing the inner working part of the ureteral access sheath over the guidewire and then with a semi-rigid scope was able to go up the ureter. There was no filling defect, stones, or obstruction noted, and my impression was this was a normal distal ureter. There was some bit of erythema and sw elling after the dilation, so I elected to place a stent, leave the stent in place, and then remove i t in 1 week in the office. No specimen. No complications. /[id number]/MODL
[2017-12-14 15:22] VITALS: TEMP 97.3
[2017-12-14 15:58] VITALS: RESP 19
[2017-12-14 17:16] VITALS: BP 153/72
[2017-12-14 17:17] VITALS: O2SAT 95
== END 2017-12-14 17:45 | disposition home or self-care (01) ==
LOC: FSGY 13:00
PROVIDERS: ATTEND Specialist
PROC: BT161ZZ Fluoroscopy of Right Ureter using Low Osmolar Contrast (ICD-10-PCS; 2017-12-14)
PROC: 0T768DZ Dilation of Right Ureter with Intraluminal Device, Via Natural or Artificial Opening Endoscopic (ICD-10-PCS; principal; 2017-12-14 14:15)
DX: N13.30 Unspecified hydronephrosis (principal); E11.22 Type 2 diabetes mellitus with diabetic chronic kidney disease; N18.6 End stage renal disease; E03.9 Hypothyroidism, unspecified; Q23.3 Congenital mitral insufficiency; M81.0 Age-related osteoporosis without current pathological fracture; F17.210 Nicotine dependence, cigarettes, uncomplicated; Z88.0 Allergy status to penicillin; Z85.3 Personal history of malignant neoplasm of breast
CPT/HCPCS: 52332; 76001; C1758; C1894; C2625; Q9967

== ENCOUNTER → 2018-07-11 | Outpatient (CLI) | payer OTHER | LOC: FLAB 10:07 | PROVIDERS: ATTEND Family Medicine | DX: M46.96 Unspecified inflammatory spondylopathy, lumbar region (principal); M46.97 Unspecified inflammatory spondylopathy, lumbosacral region; M51.37 Other intervertebral disc degeneration, lumbosacral region; M51.34 Other intervertebral disc degeneration, thoracic region; I70.0 Atherosclerosis of aorta ==

== ENCOUNTER 2019-01-08 12:44 | Inpatient (IN) | payer OTHER ==
--- NOTE | 2019-01-08 13:30 | EDPHY ---
H & P Stated Complaint: fever r sided abd pain weakness for 4 days/black stools Source: Patient Exam Limitations: No limitations - Personal History Current Tetanus Diphtheria and Acellular Pertussis (TDAP): Yes Tetanus Vaccine Date: 1999 - Medical/Surgical History Hx Asthma: No Hx Chronic Respiratory Disease: No Hx Diabetes: No Hx Cardiac Disease: No Hx Renal Disease: Yes Hx Cirrhosis: No Hx Alcoholism: No Hx HIV/AIDS: No Hx Splenectomy or Spleen Trauma: No Other PMH: PMH: recently diagnosed with kidney disease. Breast CA with lymph node involvement. Hyperthyroid. PSH: hysterectomy, cholecystectomy. Mastectomy - left breast 2004. kidney dialys - Family History Significant Family History: No pertinent family hx - Social History Smoking Status: Current every day smoker Alcohol Use: None Time Seen by Provider: 01/08/19 13:16 HPI/ROS: CHIEF COMPLAINT: Fever, body aches, right flank pain HISTORY OF PRESENT ILLNESS: The patient is a 78-year-old female with history of breast cancer and chemotherapy with resultant kidney failure. She is currently on hemodialysis and received dialysis earlier today. She gets her dialysis through a shunt in her right arm. It is not tender or erythematous. She is here with her sister and they state that she has had body aches and low- grade fevers for the last 4 days. She has a chronic smoker's cough. She is slightly hypoxic here triage. She is also tachycardic. She states that her blood pressure is always slightly low after dialysis. She states that she does not make much urine and has not had any urinary symptoms. No headache. No abdominal pain or vomiting. She does complain of right flank pain. She states she has also had intermittent dark stools as well. No vomiting. Severity: Moderate Modifying factors: None REVIEW OF SYSTEMS: Constitutional: see HPI EENTM: denies: blurred vision, double vision, nose congestion Respiratory: See HPI Cardiac: denies: chest pain, irregular heart rate, lightheadedness, palpitations Gastrointestinal/Abdominal: See HPI denies: abdominal pain, diarrhea, nausea, vomiting, blood streaked stools Genitourinary: See HPI Musculoskeletal: denies: joint pain, muscle pain Skin: denies: lesions, rash, jaundice, bruising Neurological: denies: headache, numbness, paresthesia, tingling, dizziness, weakness Hematologic/Lymphatic: denies: blood clots, easy bleeding, easy bruising Immunologic/allergic: denies: HIV/AIDS, transplant 10 systems reviewed and negative except as noted EXAM: GENERAL: Moderate distress, oxygen 90% on room air HEAD: Atraumatic, normocephalic. EYES: Pupils equal round and reactive to light, extraocular movements intact, sclera anicteric, conjunctiva are normal. ENT: TMs normal, nares patent, oropharynx clear without exudates. Moist mucous membranes. NECK: Normal range of motion, supple without lymphadenopathy or JVD. LUNGS: Right lower lobe rhonchi HEART: Regular rate and rhythm without murmurs, rubs or gallops. ABDOMEN: Soft, nontender, normoactive bowel sounds. No guarding, no rebound. No masses appreciated. Rectal exam performed, brown stool sent to the lab BACK: No CVA tenderness, no spinal tenderness, step-offs or deformities EXTREMITIES: Normal range of motion, no pitting or edema. No clubbing or cyanosis. NEUROLOGICAL: Cranial nerves II through XII grossly intact. Normal speech, normal gait. 5/5 strength, normal movement in all extremities, normal sensation , normal reflexes PSYCH: Normal mood, normal affect. SKIN: Warm, dry, normal turgor, no visible rashes or lesions. (Domingo Spear) Constitutional: Initial Vital Signs Temperature (C) 38.1 C 01/08/19 12:53 Heart Rate 122 H 01/08/19 12:53 Respiratory Rate 18 01/08/19 12:53 Blood Pressure 100/64 01/08/19 12:53 O2 Sat (%) 90 L 01/08/19 12:53 O2 Delivery Mode Room Air O2 (L/minute) 2 Allergies/Adverse Reactions: Penicillins Allergy (Severe, Verified 01/08/19 21:18) passes out Home Medications: Medication Instructions Recorded Cholecalciferol Vit D3 [Vitamin D3 1,000 units PO DAILY 08/06/15 (*)] Cyanocobalamin [Vitamin B12 (*)] 1,000 mcg PO DAILY 08/06/15 Glucosamine Sulfate [Glucosamine 500 mg PO DAILY 08/06/15 Sulfate 500 MG (*)] Furosemide [Lasix 40 MG (*)] 40 mg PO HS 01/27/16 Furosemide [Lasix 80 MG (*)] 80 mg PO DAILY 12/12/17 Herbals/Supplements -Info Only 1 each PO DAILY 12/12/17 Sevelamer Carbonate [Renvela] 2,400 mg PO TIDMEAL 12/12/17 Acetaminophen [Tylenol 325mg (*)] 650 mg PO Q4HRS PRN tab 12/13/17 C/E/Zn/Cu/OM3/DHA/EPA/LUT/ZEAX 1 each PO DAILY 12/13/17 [Preservision Areds 2 Softgel] Ondansetron Odt [Zofran Odt 4 mg 4 mg PO Q4 PRN #20 tab 12/13/17 (*)] Levothyroxine [Synthroid 75 mcg 75 mcg PO DAILY06 01/08/19 (*)] Medical Decision Making - Diagnostics Imaging: Discussed imaging studies w/ rn call center Radiologist - Diagnostics Imaging Results: Imaging Impressions Abdomen CT 01/08/19 13:47 Impression: 1. Bilateral adnexal masses. There are also masses in the mesentery, bilateral adrenals, and pancreas, as well as an infiltrative mass in the right ischial tuberosity. These are probably all related to the same process. 2. Slowly enlarging right renal exophytic mass, now measuring 1.3 x 1.3 cm, likely an RCC. 3. Mildly distended jejunum in the left hemiabdomen measuring up to 3.3 cm. Unclear if this represents early small bowel obstruction or physiologic changes related to external compression from one of these masses. 4. Trace ascites. 5. Colonic diverticulosis. Findings and recommendations discussed with Dr. Valdes at 1539 hour, 01/08/2019. CT abdomen pelvis reviewed by me and discussed with Radiology shows bilateral adnexal masses, multiple mesenteric metastases, renal cell cancer, left upper quadrant mass, infiltrate of mass in the ischial tuberosity. Dilated jejunum and cannot exclude early small-bowel obstruction (Gabriel Valdes) ED Course/Re-evaluation: Care was assigned to me at 3:00 p.m.. I took the CT report. When I went to go into the room to talk with the patient about her CT results the hospitalist was already in the room and explaining to the patient about her CT and evidence of intra-abdominal cancer. (Gabriel Valdes) 3:00 p.m. I discussed the case with Dr. Moralez who will admit. CT and respiratory panel still pending. Dr. Valdes will follow. (Domingo Spear) Differential Diagnosis: Partial list of the Differential diagnosis considered include but were not limited to; pneumonia, sepsis, urinary tract infection, abscess, line infection and although unlikely based on the history and physical exam, I also considered PE, acute coronary disease. (Domingo Spear) - Data Points Laboratory Results: Laboratory Results 01/08/19 13:15 01/08/19 13:15 Microbiology Results: MICROBIOLOGY 01/08/19 14:00 Blood Blood Culture - Preliminary Gram Negative Bradley 01/08/19 14:00 Blood Blood Panel (PCR) - Final Klebsiella Oxytoca 01/08/19 14:10 Blood Blood Culture - Preliminary Gram Negative Bradley 01/08/19 14:10 Nasal, Sinus - Swab Respiratory Panel (PCR) - Final No Organism Detected By Pcr Medications Given: Cholecalciferol (Vitamin D) 1,000 units PO DAILY SAMANTHA Stop: 07/08/19 08:59 Last Admin: 01/09/19 08:49 Dose: 1,000 units Glucosamine Sulfate (Glucosamine Sulfate) 500 mg PO DAILY SAMANTHA Stop: 07/08/19 08:59 Last Admin: 01/09/19 08:49 Dose: 500 mg Hydromorphone HCl (Dilaudid) 0.2 mg IVP Q4 PRN PRN Reason: Pain, Severe Unable to Take PO Stop: 01/18/19 16:31 Last Admin: 01/09/19 04:06 Dose: 0.2 mg Levothyroxine Sodium (Synthroid) 75 mcg PO DAILY06 SAMANTHA Stop: 07/08/19 05:59 Last Admin: 01/09/19 04:07 Dose: 75 mcg Miscellaneous Medication (Sevelamer Carbonate [Renvela]) 2,400 mg PO TIDMEAL SAMANTHA Stop: 07/07/19 17:59 Last Admin: 01/09/19 12:09 Dose: 2,400 mg Multivitamins/Minerals (Preservision Areds2 Formula) 1 each PO DAILY SAMANTHA Stop: 07/08/19 08:59 Last Admin: 01/09/19 08:49 Dose: 1 each Ondansetron HCl (Zofran Odt) 4 mg PO Q4HRS PRN PRN Reason: Nausea/Vomiting, Use 1st Stop: 07/07/19 15:21 Last Admin: 01/09/19 08:48 Dose: 4 mg Oxycodone HCl (Oxycodone Ir) 2.5 - 5 mg PO Q4 PRN PRN Reason: Pain, Severe Able to Take PO Stop: 01/18/19 15:42 Last Admin: 01/09/19 08:51 Dose: 5 mg Pantoprazole Sodium (Protonix) 40 mg IVP BID SAMANTHA Stop: 07/07/19 20:59 Last Admin: 01/09/19 08:49 Dose: 40 mg Vitamin B Complex (Vitamin B12) 1,000 mcg PO DAILY SAMANTHA Stop: 07/08/19 08:59 Last Admin: 01/09/19 08:49 Dose: 1,000 mcg Discontinued Medications Acetaminophen (Tylenol) 1,000 mg PO EDNOW ONE Stop: 01/08/19 15:02 Last Admin: 01/08/19 15:05 Dose: 1,000 mg Sodium Chloride (Ns) 500 mls @ 1,000 mls/hr IV EDNOW ONE PRN Reason: Protocol Stop: 01/08/19 14:15 Last Admin: 01/08/19 14:11 Dose: 500 mls Sodium Chloride (Ns) 500 mls @ 1,500 mls/hr IV ONCE ONE Stop: 01/08/19 17:38 Last Admin: 01/08/19 17:26 Dose: 500 mls Levofloxacin/Dextrose (Levaquin 750 Mg (Premix)) 150 mls @ 100 mls/hr IV ONCE ONE PRN Reason: Protocol Stop: 01/08/19 22:44 Last Admin: 01/08/19 22:27 Dose: 150 mls Departure - Departure Disposition: [facility] Inpatient Acute Clinical Impression: Abdominal pain Qualifiers: Abdominal location: right lower quadrant Qualified Code(s): R10.31 - Right lower quadrant pain Condition: Fair
[2019-01-08 13:44] LABS: PLATELET COUNT 238 10^3/uL (150-400)
[2019-01-08] MEDS ORDERED: NS 500 ML IV ONE ×2 (13:46→17:19)
[2019-01-08 13:55] LABS: INR 1.02 (0.83-1.16)
[2019-01-08] MEDS ORDERED: IOPAMIDOL (ISOVUE-300) 100 ML BTL ONE ×2 (14:37→18:10)
[2019-01-08] MEDS ORDERED: ACETAMINOPHEN 500 MG TAB PO ONE (15:01)
[2019-01-08] MEDS ORDERED: ACETAMINOPHEN 325 MG TAB PO PRN (15:22)
[2019-01-08] MEDS: oxyCODONE IR 5 MG TAB PO PRN ×2 (16:07→22:28)
[2019-01-08] MEDS ORDERED: D50W 25 GM/50 ML SYR IVP PRN (16:39)
--- NOTE | 2019-01-08 17:25 | GHP ---
[f rep st] HISTORY AND PHYSICAL DATE OF ADMISSION: 01/08/2019 CHIEF COMPLAINT: Abdominal pain, fevers, and malaise. 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 Symptoms present for the past 4 days. She had a temperature greater than 100 at 11 a.m. Endorses chills and diarrhea multiple times over the past few days that is black. Mild dysuria and RLQ pain that's dull, but can be sharp and 10/10. No nausea or vomiting. Decreased appetite and oral intake. c/o right hip pain for several months, dull and achy, but sharp with activity. Endorses weight loss, but not sure how much. Has dry cough that is chronic. Smokes a half pack of cigarettes and has been smoking since the age of 12. REVIEW OF SYSTEMS: I completed a 10-point review of systems, negative except as noted in HPI. PAST MEDICAL HISTORY: 1. End-stage renal disease secondary to glomerulosclerosis, on dialysis Tuesday , Tuesday, Tuesday. 2. Hypothyroidism. 3. Anemia of renal disease. 4. History of right hydronephrosis, status post ureteral stent November 2017. 5. History of breast cancer, status post left mastectomy and chemotherapy. 6. Hypertension. 7. Osteoporosis. PAST SURGICAL HISTORY: Cystoscopy with ureteral stent placement November 2017, mastectomy, hysterectomy, cholecystectomy, AV fistula placement, and bilateral cataract removal. FAMILY HISTORY: Sister with colon cancer. Sister with breast cancer. SOCIAL HISTORY: Smokes half a pack a day. Has been smoking since age 12. Lives in [place] with her and has been 63 years. No alcohol or illicit drugs. ALLERGIES: Penicillin. HOME MEDICATIONS: Lasix 40 mg at bedtime and 80 mg daily, levothyroxine 75 mcg daily, Renvela 2400 mg p.o. three times daily with meals, Zofran as needed, herbal supplement, glucosamine, vitamin B12, vitamin D3, and Tylenol as needed. PHYSICAL EXAM: VITAL SIGNS: Temperature 38.1, blood pressure 100/64, and heart rate in the 120s, now 107; 97% on room air. GENERAL: Lying in bed, mildly uncomfortable, pale, and appears fatigued. HEENT: PERRLA. Mildly dry mucous membranes. Oropharynx clear. No exudate or erythema. CV: Tachycardic , regular. LUNGS: Clear. ABDOMEN: Diffuse tenderness. No rebound or guarding. Quiet bowel sounds. : Right suprapubic tenderness. SKIN: Warm and dry. NEUROLOGICAL: 2 through 12 intact. PSYCHIATRIC: Alert and oriented x3. LABORATORY DATA: WBC 12, hemoglobin 9.6, hematocrit 29, and platelets 238. Coags within normal. Lactate is 1.9. Sodium 135, potassium 3.9, chloride 99, carbon dioxide 23, BUN 23, and creatinine 2.5; baseline is 3 to 5. Glucose 69. Calcium 8.4 and total bilirubin 0.6. UA pending. Respiratory and GI PCR pending. CT abdomen and pelvis: Bilateral adnexal masses. Masses in mesentery, bilateral adrenals, and pancreas, and an infiltrative mass in the right ischial tuberosity. Exophytic mass in the right kidney 1.3 x 1.3 cm. Mildly distended jejunum in the left lorena-abdomen, trace ascites, and colonic diverticulosis. Chest x-ray: Pulmonary nodule in lateral left lung, personally reviewed. ASSESSMENT AND PLAN: 1. Suspected metastatic malignancy: diffuse disease in the abdomen and pelvis. Tumor markers pending. Dr. Guevara will consult in morning. IR ischial biopsy ordered. Pulmonary nodules c/w metastatic disease on CT. 2. Abdominal pain: from masses. Given fever, will complete infectious eval; GI PCR pending. Oxycodone and intravenous Dilaudid if needed for pain control. A small area of jejunum is dilated. Cannot fully determine if obstructed, but is not having nausea or vomiting. Will allow clears, but, if symptoms progress, we will make n.p.o. 3. ESRD: had HD today. Renal aware and will see tomorrow. On RA, lytes stable. 4. Hypoglycemia: decreased p.o. intake and clears; q.6 h. glucose checks. 5. History of breast cancer, status post chemotherapy and mastectomy. 6. Hypertension. Hold antihypertensives. 7. Melena: CT showing diverticulosis. No NSAID. H/H 07/13, check serial H/H, type & cross. IV PPI. Discussed case with Dr. Mueller 8. Sepsis: tachycardic, febrile with leukocytosis. NL lactate. No pneumonia. GI/respiratory PCR, blood cultures. No abscess on abdominal CT. Give LQ x1 with mildly positive UA and dysuria; culture pending. Underlying malignancy could also be etiology. P.r.n. Tylenol. 9. Right ischial pain: from cancer. Schedule Tylenol, PRN oxycodone. If not effective, can use dexamethasone. 10. Tachycardia: fever, pain. Bolus 500cc now. May need gentle fluids. Caution with ESRD 11. Dysuria: UA mildly positive, but symptomatic, febrile. Give LQ x 1. (" passes out with PCN") 12. Diet: clears 13. DVT ppx: SCDs DISPOSITION: Inpatient admission given sepsis, warranting further infectious evaluation and oncology consultations. /[id number]/MODL MTDJudy
--- NOTE | 2019-01-08 18:40 | GCON ---
[f rep st] CONSULTATION This very pleasant 78-year-old female has a past history of breast cancer and a monoclonal gammopathy of uncertain significance. She presented to the emergency room complaining of fever and weakness and also black stools and some right pelvic pain. On admission, she was noted to be anemic and admission chest x-ray showed a pulmonary nodule or a focal nodular infiltrate in the lateral left lung and an abdominal CT scan showed a number finding is quite suspicious for an underlying malignancy including bilateral adnexal masses measuring 8.8 x 6.3 cm on the right and 6.8 x 6.1 cm on the left. There was a small amount of ascites. There was an associated right mesenteric mass measuring 4.8 x 3.7 cm. Atrophy of the kidneys was noted and I should note, patient is on chronic dialysis. There is a small, but enlarging right renal mass compared to a study from a year ago, measuring 1.3 x 1.3 cm and finally, there was a large infiltrative mass in the right ischial tuberosity measuring 4.6 x 2.9 cm. She is admitted for further evaluation. She says she has, in addition to the black stools, been anorexic. PAST MEDICAL HISTORY: Significant for kidney disease, on dialysis for 2 or 3 years. She had a breast carcinoma diagnosed in 2004, which was a stage IIA, T2 N0, ER-positive breast cancer. She was treated with 6 cycles of FAC and received Arimidex for over 5 years. Her monoclonal gammopathy has been diagnosed for the last 3 years. She had an IgG kappa spike, which has been stable to modestly increased over the last 3 years. FAMILY HISTORY: A sister with non-Hodgkin lymphoma, a sister with colon cancer and a sister with breast cancer. REVIEW OF SYSTEMS: Negative except as discussed in the HPI. PHYSICAL EXAMINATION: GENERAL: She is a very pleasant female, alert. VITAL SIGNS: Blood pressure 107/53, heart rate 104, temperature is 100. HEENT: She is not icteric. Pharynx is unremarkable. She is edentulous. LUNGS: Clear. CARDIAC: Exam is unremarkable. BREASTS: There is a left mastectomy and there are no nodules noted. Right breast is unremarkable. She has had routine mammograms. ABDOMEN: Slightly distended and nontender. EXTREMITIES: No edema. NEUROLOGIC: Exam is nonfocal. LABORATORY: White count is 12,000 with a leftward shift. Hemoglobin 9.6, hematocrit 29.5, platelets are 238,000. Creatinine is 2.5. CA-125 is 192. AST is 69. IMPRESSION: Patient with a number of abnormalities on CT scan consistent with underlying malignancy. She has a distant past history of breast cancer. She also has adnexal masses and elevated CA-125. She also has anemia and a heme- positive stool. Differential, in terms of her malignancy, is fairly broad and I think we need to obtain a tissue diagnosis. After review with Radiology, I have elected to biopsy the mass in the right ischial tuberosity. I think we should probably obtain a CT scan of the chest as well and additional labs to include a CEA, as well as repeating her myeloma panel and iron studies. GI evaluation might be indicated depending on tissue typing. The patient is 78 and on dialysis, but is quite alert at this time. I think it is unlikely that the small right renal tumor is playing a role. Our service will follow with you. /[id number]/MODL MTDD
--- NOTE | 2019-01-08 18:59 | SOAPPROG ---
SOAP Progress Note Assessment/Plan: Assessment: #ESRD- [facility] Cheng [facility] -had HD earlier today, next run likely Tue -AVF for access #low grade fevers, relative hypotension-- sepsis eval ongoing -cultures sent, antibiotics per hospitalist -ok for gentle IVF back tonight as you are- received 500cc IV bolus now #multiple lesions on CT concerning for metastatic CA, unknown primary -oncology following, plans for biopsy -elevated CA-125 with bilateral adnexal masses -history of prior breast CA #anemia CKD -Hb at goal -iron levels low and needs repletion -notes some dark stools and defer to hospitalist for GI eval #MBD of CKD -check phos am labs -renal diet when taking po I discussed with Dr. Trammell and RN [facility] office [phone] 01/08/19 19:50 01/08/19 19:52 Subjective: 78 W with ESRD (Beth Cheng [facility]), prior breast CA admit with diffuse abdominal pain, fever, weakness. Had HD earlier today- she is not sure how much was UF and denies attempts at aggressive fluid removal. Denies n/v, diarrhea. Has ischial tuberosity lesion, lung nodule, bilateral adnexal masses on CT concerning for metastatic lesions. Has elevated CA-125. Oncology following with plans for biopsy. Notes dark stools. BP soft and reports usually runs low but not sure- does not think she takes midodrine for BP support with HD. Getting gentle IVF back now. Denies sob, cp. Objective: Vital Signs Temp Pulse Resp BP Pulse Ox 37.7 C 65 16 92/42 L 93 01/08/19 17:20 01/08/19 18:05 01/08/19 18:05 01/08/19 18:05 01/08/19 18:05 01/07/19 01/08/19 01/09/19 05:59 05:59 05:59 Intake Total 1350 Balance 1350 PT 13.0 SEC (12.0-15.0) 01/08/19 13:15 INR 1.02 (0.83-1.16) 01/08/19 13:15 Physical Exam - Physical Exam General Appearance: alert, no apparent distress, other (frail appearing, not tachypneic) EENT: other (mmm) Neck: supple Respiratory: lungs clear Cardiac/Chest: regular rate, rhythm, other (no rub, AVF heard radiating across precordium) Abdomen: non-tender, soft, other (+ascites) Skin: warm/dry Extremities: other (no edema, RUE AVF +thrill/bruit) Neuro/Psych: alert, oriented x 3 ICD10 Worksheet Patient Problems: Problems Problem Status Onset Abdominal pain Acute Acute gallstone pancreatitis Acute Ureteral obstruction, right Acute
--- NOTE | 2019-01-08 21:31 | PDMN ---
Medical Necessity Medical necessity: Pt meets inpt criteria per MD order and MCG M-160, Sepsis and Other Febrile Illness, without Focal Infection, A-3 days. 78 y/o w/ESRD sec to glomerular sclerosis and hx breast CA s/p mastectomy/chemo presenting w/ fevers, abd pain, diarrhea, chills, and malaise, admitted w/sepsis as evidenced by leukocytosis, tachy, febrile, hypotensive, suspected metastatic malignancy, mult nodules on CT, abd pain from masses (seen on abd CT), GI PCR pending, UA mildly +, dysuria. Given sepsis and other above issues including possible metastatic CA, anticipate>2MN for further eval/management.
[2019-01-08] MEDS: PANTOPRAZOLE SODIUM 40 MG VIAL IVP SCH (22:27)
[2019-01-08] MEDS: Sevelamer Carbonate [Renvela] 800MG TAB PO SCH (22:39)
[2019-01-09] MEDS: ONDANSETRON DISINTEGRATING 4 MG TAB PO PRN ×2 (00:56→08:48)
[2019-01-09] MEDS: HYDROmorphONE/DILAUDID 1 MG/ML INJ IVP PRN (04:06)
[2019-01-09] MEDS: LEVOTHYROXINE 75 MCG TAB PO SCH (04:07)
[2019-01-09] MEDS ORDERED: LIDOCAINE 1% 300 MG/30 ML SDV ONE (08:40)
[2019-01-09] MEDS: PRESERVISION AREDS2 FORMULA EYE VIT 1 EACH PO SCH (08:49)
[2019-01-09] MEDS: CYANO/VITAMIN B12 1000 MCG TAB PO SCH (08:49)
[2019-01-09] MEDS: Sevelamer Carbonate [Renvela] 800MG TAB PO SCH ×3 (08:49→17:40)
[2019-01-09] MEDS: CHOLECALCIFEROL VIT D3 1,000 UNITS TAB PO SCH (08:49)
[2019-01-09] MEDS: GLUCOSAMINE SULF 500 MG CAP PO SCH (08:49)
[2019-01-09] MEDS: PANTOPRAZOLE SODIUM 40 MG VIAL IVP SCH ×2 (08:49→22:19)
[2019-01-09] MEDS: oxyCODONE IR 5 MG TAB PO PRN ×3 (08:51→22:23)
[2019-01-09] MEDS ORDERED: Herbals/Supplements -Info Only PO SCH (09:00)
--- NOTE | 2019-01-09 09:18 | SOAPPROG ---
SOAP Progress Note Assessment/Plan: Assessment: I know the patient quite well from past care. She expressed understanding of her current situation. 1. ESRD [facility] MWF, Next HD Wed. 2. Anemia Stable, does not appear to be actively bleeding. 3. Metastatic Cancer Dr. Guevara following. Past Hx Breast CA. Biopsy today. Elevated CA 125 4. Plan of care Pending diagnosis, palliative options seem most appropriate. Plan: 01/09/19 09:15 Subjective: Doing ok Objective: Vital Signs Temp Pulse Resp BP Pulse Ox 36.8 C 86 18 100/51 L 90 L 01/09/19 03:53 01/09/19 03:53 01/09/19 03:53 01/09/19 03:53 01/09/19 03:53 Laboratory Results 01/09/19 07:59 01/09/19 04:10 01/08/19 01/09/19 01/10/19 05:59 05:59 05:59 Intake Total 1750 Output Total 330 Balance 1420 PT 13.0 SEC (12.0-15.0) 01/08/19 13:15 INR 1.02 (0.83-1.16) 01/08/19 13:15 Physical Exam - Physical Exam General Appearance: no apparent distress Neck: supple Respiratory: lungs clear, decreased breath sounds Cardiac/Chest: regular rate, rhythm, systolic murmur Skin: normal color Extremities: normal inspection Neuro/Psych: oriented x 3 ICD10 Worksheet Patient Problems: Problems Problem Status Onset Abdominal pain Acute Acute gallstone pancreatitis Acute Ureteral obstruction, right Acute
--- NOTE | 2019-01-09 09:20 | SOAPPROG ---
SOAP Progress Note Assessment/Plan: Assessment: Metastatic cancer; primary unknown. Plan: Reviewed chart and consultation notes. Patient to have bx of mass for histologic diagnosis. I will wait to see if histology indeterminate and need for GI investigation need. Please call me if I can be of further assistance. Modesto Quintana MD [phone] 01/09/19 09:17 Objective: Vital Signs Temp Pulse Resp BP Pulse Ox 36.8 C 86 18 100/51 L 90 L 01/09/19 03:53 01/09/19 03:53 01/09/19 03:53 01/09/19 03:53 01/09/19 03:53 Laboratory Results 01/09/19 07:59 01/09/19 04:10 01/08/19 01/09/19 01/10/19 05:59 05:59 05:59 Intake Total 1750 Output Total 330 Balance 1420 PT 13.0 SEC (12.0-15.0) 01/08/19 13:15 INR 1.02 (0.83-1.16) 01/08/19 13:15 ICD10 Worksheet Patient Problems: Problems Problem Status Onset Abdominal pain Acute Acute gallstone pancreatitis Acute Ureteral obstruction, right Acute
--- NOTE | 2019-01-09 09:25 | SOAPPROG ---
SOAP Progress Note Assessment/Plan: Assessment: addendum; Pt with Kleb Pn bacteremia. Likely GI or source. Appears to have responded to quinolone. Will continue. Objective: Vital Signs Temp Pulse Resp BP Pulse Ox 36.6 C 77 16 94/40 L 89 L 01/09/19 09:19 01/09/19 09:19 01/09/19 09:19 01/09/19 09:19 01/09/19 09:19 Laboratory Results 01/09/19 07:59 01/09/19 04:10 01/08/19 01/09/19 01/10/19 05:59 05:59 05:59 Intake Total 1750 Output Total 330 Balance 1420 PT 13.0 SEC (12.0-15.0) 01/08/19 13:15 INR 1.02 (0.83-1.16) 01/08/19 13:15 ICD10 Worksheet Patient Problems: Problems Problem Status Onset Abdominal pain Acute Acute gallstone pancreatitis Acute Ureteral obstruction, right Acute
--- NOTE | 2019-01-09 13:08 | HOSPPROG ---
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 ASSESSMENT/PLAN: Sepsis, likely GI/ source Klebsiella bacteremia Cardiac murmur -IV Abx, low rate IVF. -Check echo to r/o cardiac vegetations Acute GIB Acute blood loss anemia -GI consulted - recs appreciated -Following H/H - stable. -Transfuse 1u PRBC if Hgb drops < 7. Hypotension -likely 2/2 sepsis/GIB. -low rate IV fluids. 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 FU Path. -Consulted Palliative Care -Onc consulted - recs appreciated. -FU lab studies. ESRD on HD, MWF Chronic anemia Hyponatremia, mild -Nephro recs appreciated. Generalized weakness Loss of appetite Fatigue -2/2 above pathologic processes. -PT/ISU. VTE prophylaxis: SCDs. Code Status: Full code Status: Inpatient for > 2 midnight stay. Disposition: Med surg ____ SUBJECTIVE: Today patient continues to have some abdominal pain. +weak. OBJECTIVE: Physical Exam: General: The patient is an elderly female who is alert and in no acute distress. HEENT: normocephalic, extraocular movements intact, conjunctivae clear. Mucous membranes moist. Neck: trachea midline, no visible masses. CV: +S1/S2, RRR, + grade 3 systolic murmur, no rubs or gallops. Resp: unlabored, CTAB no RRW. Abd: soft and mildly distended. Bowel sounds present. Diffusely tender throughout, worse bilateral lower quadrants. Musculoskeletal: reduced muscle tone/bulk. Neuro: cranial nerves II - XII grossly intact. Intact gross motor and sensory function. Psych: Appropriate mood and appropriate affect. Skin: No pallor. No petechiae. Heme/lymph: No pitting peripheral edema at bilateral ankles. Labs/Imaging/Other Tests: Chest CT with IV contrast: (personally interpreted) There is a 3- x 1-cm nodular mass in the left upper lobe that would be suspicious for a metastatic lesion. Additionally, multiple sub 5-mm nodules are seen bilaterally also worrisome for metastatic disease. Mildly enlarged hilar and mediastinal lymph nodes are seen. There is right lower lobe consolidation, with an associated right pleural effusion. 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 Impression: 1. Bilateral adnexal masses. There are also masses in the mesentery, bilateral adrenals, and pancreas, as well as an infiltrative mass in the right ischial tuberosity. These are probably all related to the same process. 2. Slowly enlarging right renal exophytic mass, now measuring 1.3 x 1.3 cm, likely an RCC. 3. Mildly distended jejunum in the left hemiabdomen measuring up to 3.3 cm. Unclear if this represents early small bowel obstruction or physiologic changes related to external compression from one of these masses. 4. Trace ascites. 5. Colonic diverticulosis. Chest CT w/ contrast: There is a 3- x 1-cm nodular mass in the left upper lobe that would be suspicious for a metastatic lesion. Additionally, multiple sub 5-mm nodules are seen bilaterally also worrisome for metastatic disease. Mildly enlarged hilar and mediastinal lymph nodes are seen. There is right lower lobe consolidation, with an associated right pleural effusion. No definite endobronchial lesion is seen. No aggressive osseous lesion is seen. Multilevel spinal degenerative changes are noted. Objective: Vital Signs Temp Pulse Resp BP Pulse Ox 36.4 C 80 16 105/44 L 93 01/09/19 11:54 01/09/19 11:54 01/09/19 11:54 01/09/19 11:54 01/09/19 11:54 Laboratory Results 01/09/19 11:40 01/09/19 04:10 01/08/19 01/09/19 01/10/19 05:59 05:59 05:59 Intake Total 1750 Output Total 330 Balance 1420 PT 13.0 SEC (12.0-15.0) 01/08/19 13:15 INR 1.02 (0.83-1.16) 01/08/19 13:15 - Time Spent With Patient Time Spent with Patient: greater than 35 minutes Time Spent with Patient: Greater than 35 minutes spent on this patients care, greater than 50% of time spent counseling, educating, and coordinating care regarding the above mentioned plan. ICD10 Worksheet Patient Problems: Problems Problem Status Onset Abdominal pain Acute Acute gallstone pancreatitis Acute Ureteral obstruction, right Acute
--- NOTE | 2019-01-09 15:31 | ASMTCMCOM ---
CM Note CM Note Notes: 01/09/2019 Case Management Note Pt admitted for sepsis, acute abdominal pain and melena. Pt has history of end stage renal disease on HD and breast cancer. 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 Met w/pt, son Zaheer [phone] and sister Hanna [phone]. Pt Titi [phone] was at home after visiting pt earlier in the day. Pt lives with her and has supportive family nearby. Pt has HD on MWF at [facility] on [address]. Pt or sister transport. If pt requires IV abx at d/c, case management to check if [facility] can administer antibiotics after dialysis. PT recommending home care. Pt in agreement. Provided home care list. Pt chose [facility]. Faxed referral. Confirmed acceptance on the phone. Discussed palliative order w/Cody from Palliative Team. Cody to meet w/pt tomorrow. Case Management d/c poc: home with and [facility] RN PT. Resume dialysis at [facility]. Discharge antibiotic needs to be determined. Case Management to follow. Date Signed: 01/09/2019 03:31 PM Electronically Signed By:Tammie Schumacher RN
--- NOTE | 2019-01-09 16:10 | ECHO ---
[email or web address] [address] [address] Main: [phone] Echocardiography Examination Transthoracic Name: DELMER GLASS MR#: [id number] Study Date: 01/09/2019 Study Time: 03:19 PM Date of : 1940 Age: 78 year(s) Height: 139.7 cm (55 in.) Weight: 59.42 kg (131 lb.) BSA: 1.46 m2 Gender: Female Examination: Echo Contrast: Image Quality: Adequate Rhythm: Heart Rate: 80 bpm BP: 90 mmHg/50 mmHg Indication: Murmur Procedure Staff Referring Physician: Routing Equipment Tender: Onur Rayn RDCS Reading Physician: Lit Guzman MD Requesting Provider: Indication: Murmur Measurements Chambers AV/MV Label Value Normal Value Label Value Normal Value EF lower range (%) 65 % AR PHT 0.4 s EF upper range (%) 70 % AR PHT 403 ms IVSd, 2D 0.8 cm (0.6cm - 1.1cm) AR Vmax 3.24 m/s LVDd, 2D 3.8 cm (3.9cm - 5.3cm) AV PGmax 32 mmHg LVDs, 2D 2.4 cm (2.1cm - 4cm) AV PGmean 12 mmHg LVEF, 2D 67 % (54% - 74%) AV Vmax 2.82 m/s LVOT PGmax 3 mmHg JEWEL (continuity eq. 0.8 cm2 LVOT PGmean 2 mmHg Vmax) LVOT Vmax 0.93 m/s (0.7m/s - 1.1m/s) JEWEL D (continuity eq. 1.1 cm2 LVOT Vmean 0.65 m/s VTI) LVOTd 1.8 cm (1.8cm - 2cm) MV A Vmax 1.3 m/s LVPWd, 2D 0.9 cm MV E' lateral 0.05 m/s RVDd, 2D 2.6 cm (1.9cm - 3.8cm) MV E' mean 0.04 m/s LA Volume, BP 50 ml (22ml - 52ml) MV E' septal 0.04 m/s LAESV index, BP 34.2 ml/m2 MV E Vmax 0.99 m/s MV E/A 0.76 MV E/E' lateral 18.4 MV E/E' mean 22 MV E/E' septal 24.7 (0.45 - 1.25) MV PGmax 9 mmHg Patient: DELMER GLASS Study Date: 01/09/2019 Page 1 of 3 03:19 PM MV PGmean 3 mmHg MV VTI 36.3 cm MVA D (continuity eq.) 1.7 cm2 TV/PV Label Value Normal Value RA Pressure 5 mmHg RVSP 22 mmHg TR Pmax 17 mmHg TR Vmax 2.08 m/s PV PGmax 5 mmHg PV Vmax, Caliper 1.1 m/s (0.6m/s - 0.9m/s) Conclusions Overall Conclusions: No pericardial effusion. Ejection fraction 65-70%. Diastolic dysfunction by Doppler. Mild mitral regurgitation. Aortic sclerosis with mild aortic regurgitation. Right ventricular systolic pressure is 20 mm of mercury. Findings Left Ventricle: Compared to the previous exam of 09/22/17 there has been no significant change.. Left ventricle is normal in size. Normal global systolic left ventricular function. EF range is estimated at 65 % - 70 %. Left ventricle wall thickness is normal. There are no regional wall motion abnormalities. Grade II Diastolic Dysfunction. Right Ventricle: Normal size right ventricle. Right ventricular systolic function is normal. Left Atrium: The left atrium is normal in size. Right Atrium: The right atrium is normal in size. Mitral Valve: Mild mitral regurgitation. No mitral valve stenosis. There is mild mitral calcification. Aortic Valve: There is turbulent flow noted thru the aortic valve with no stenosis. The Mean PG of the Aortic valve is 12 mmHg.. Mild aortic regurgitation is present. There is no aortic stenosis. Aortic leaflets exhibit moderate calcification. Tricuspid Valve: Trivial tricuspid regurgitation. Right Ventricular systolic pressure is measured at 22 mmHg. Pulmonary artery pressure normal. Aorta: The aorta is normal. Pericardium: No pericardial effusion. Exam Details Procedure Ordered: Echo Procedure Status: Routine study Image Quality: Adequate Facility Location: Cardiac Echo 1 (No Signature Object) Patient: DELMER GLASS Study Date: 01/09/2019 Page 2 of 3 03:19 PM Patient: DELMER GLASS Study Date: 01/09/2019 Page 3 of 3 03:19 PM [id number]
[2019-01-09] MEDS: MIDODRINE HCL 5 MG TAB PO SCH (17:00)
[2019-01-09] MEDS ORDERED: NS 1,000 ML IV SCH (20:15)
[2019-01-10] MEDS: HYDROmorphONE/DILAUDID 1 MG/ML INJ IVP PRN ×6 (02:30→18:44)
[2019-01-10 05:06] LABS: PLATELET COUNT 189 10^3/uL (150-400)
[2019-01-10] MEDS: LEVOTHYROXINE 75 MCG TAB PO SCH (05:26)
[2019-01-10] MEDS ORDERED: HYDROmorphONE/DILAUDID 2 MG/ML INJ IVP ONE (06:17)
[2019-01-10] MEDS: MIDODRINE HCL 5 MG TAB PO SCH ×3 (08:25→18:20)
[2019-01-10] MEDS: Sevelamer Carbonate [Renvela] 800MG TAB PO SCH ×3 (08:26→19:14)
[2019-01-10] MEDS: PANTOPRAZOLE SODIUM 40 MG VIAL IVP SCH ×2 (08:27→21:39)
[2019-01-10] MEDS: CYANO/VITAMIN B12 1000 MCG TAB PO SCH (08:30)
[2019-01-10] MEDS: CHOLECALCIFEROL VIT D3 1,000 UNITS TAB PO SCH (08:30)
[2019-01-10] MEDS: GLUCOSAMINE SULF 500 MG CAP PO SCH (08:30)
[2019-01-10] MEDS: PRESERVISION AREDS2 FORMULA EYE VIT 1 EACH PO SCH (08:30)
--- NOTE | 2019-01-10 11:21 | SOAPPROG ---
SOAP Progress Note Assessment/Plan: Assessment: ESRD, HD today, I can't feel thrill or hear a bruit over her AVF widely metastatic breast cancer anemia, multifactorial: cancer, ESRD, + FOB Klebsiella bacteremia, sensitive to Levaquin, looks like urine source Plan: HD today if we are able to access her AVF continue antibiotics with widely metastatic breast cancer ? palliative care 01/10/19 11:18 Objective: Vital Signs Temp Pulse Resp BP Pulse Ox 36.6 C 89 18 105/62 93 01/10/19 07:29 01/10/19 07:29 01/10/19 10:30 01/10/19 07:29 01/10/19 10:30 Laboratory Results 01/10/19 04:40 01/10/19 04:40 01/09/19 01/10/19 01/11/19 05:59 05:59 05:59 Intake Total 1750 1400 Output Total 330 20 Balance 1420 1380 PT 13.0 SEC (12.0-15.0) 01/08/19 13:15 INR 1.02 (0.83-1.16) 01/08/19 13:15 Physical Exam - Physical Exam General Appearance: alert, thin Neck: normal inspection Respiratory: No rhonchi, No wheezing, No pleural rub Cardiac/Chest: regular rate, rhythm, systolic murmur Abdomen: normal bowel sounds, non-tender, soft Skin: warm/dry Neuro/Psych: alert, normal mood/affect, oriented x 3 ICD10 Worksheet Patient Problems: Problems Problem Status Onset Abdominal pain Acute Acute gallstone pancreatitis Acute Ureteral obstruction, right Acute
[2019-01-10] MEDS: ONDANSETRON 4 MG/2 ML VIAL IVP PRN (14:37)
--- NOTE | 2019-01-10 15:54 | HOSPPROG ---
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 ASSESSMENT/PLAN: Sepsis, likely GI/ source Klebsiella bacteremia Cardiac murmur -IV Abx, low rate IVF. -Checked echo to r/o cardiac vegetations, none noted Acute GIB Acute blood loss anemia -GI consulted - recs appreciated -Following H/H - stable. -Transfuse 1u PRBC if Hgb drops < 7. Hypotension -likely 2/2 sepsis/GIB. -low rate IV fluids. 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 FU Path. -Consulted Palliative Care -Onc consulted - recs appreciated. -FU lab studies. ESRD on HD, MWF Chronic anemia Hyponatremia, mild -Nephro recs appreciated. Generalized weakness Loss of appetite Fatigue -2/2 above pathologic processes. -PT/ISU. VTE prophylaxis: SCDs. Code Status: Full code Status: Inpatient for > 2 midnight stay. Plan per above: -increase pain meds -check cxr give hypoxemia, cont IS -Dialysis if AVF works -cont Levaquin, she appears to be responding -monitor bp closely, better today after Midodrine. is afebrile -await ischial biopsy results from 01/09 -Palliative consult ordered Subjective: on 4 L o2. bP is soft, better with Midodrine. generalized abd pain Objective: Vital Signs Temp Pulse Resp BP Pulse Ox 36.6 C 78 17 104/53 L 94 01/10/19 14:52 01/10/19 14:52 01/10/19 14:52 01/10/19 14:52 01/10/19 14:52 Laboratory Results 01/10/19 04:40 01/10/19 04:40 01/09/19 01/10/19 01/11/19 05:59 05:59 05:59 Intake Total 1750 1400 Output Total 330 20 Balance 1420 1380 PT 13.0 SEC (12.0-15.0) 01/08/19 13:15 INR 1.02 (0.83-1.16) 01/08/19 13:15 - Physical Exam Constitutional: chronically ill appearing Eyes: PERRL, EOMI Ears, Nose, Mouth, Throat: moist mucous membranes, hearing normal Cardiovascular: regular rate and rhythym, No edema Respiratory: no respiratory distress, no rales or rhonchi, clear to auscultation Gastrointestinal: normoactive bowel sounds, soft, non-tender abdomen Skin: warm Musculoskeletal: generalized weakness Neurologic: AAOx3 Psychiatric: interacting appropriately, not anxious Lymph, Heme, Immunologic: No petechiae ICD10 Worksheet Patient Problems: Problems Problem Status Onset Abdominal pain Acute Acute gallstone pancreatitis Acute Ureteral obstruction, right Acute
--- NOTE | 2019-01-10 16:38 | ASMTCMCOM ---
CM Note CM Note Notes: Pt discussed in rounds and Palliative care Cody saw Pt today. Pt very fatigued. CM available for needs. PLAN: Likely discharge home with [facility] PT, RN, Date Signed: 01/10/2019 04:36 PM Electronically Signed By:Yokasta Nelson
[2019-01-10] MEDS ORDERED: HEPARIN 10,000 UNIT/10 ML MDV (1,000 UNIT/ML) IVP PRN (16:46)
[2019-01-10] MEDS ORDERED: HEPARIN/DEXTROSE 500 ML IV SCH (17:00)
[2019-01-10] MEDS ORDERED: HYDROmorphONE/DILAUDID 1 MG/ML INJ IVP ONE (18:15)
[2019-01-10 18:55] LABS: PLATELET COUNT 214 10^3/uL (150-400)
[2019-01-10 19:03] LABS: INR 1.07 (0.83-1.16); PROTIME(PATIENT) 13.5 SEC (12.0-15.0)
[2019-01-10] MEDS ORDERED: LIDOCAINE 1% *Not for Epidural 20 ML MDV ONE (19:50)
[2019-01-10] MEDS: levOFLOXACIN 500 MG/DEXTROSE 100 ML IV SCH (21:42)
[2019-01-11] MEDS: HYDROmorphONE/DILAUDID 1 MG/ML INJ IVP PRN ×5 (00:34→18:50)
[2019-01-11] MEDS: ONDANSETRON 4 MG/2 ML VIAL IVP PRN ×2 (00:46→10:25)
[2019-01-11 02:32] LABS: PLATELET COUNT 141 10^3/uL (150-400)
[2019-01-11] MEDS: PROMETHAZINE HCL 25 MG/ML INJ IVP PRN (03:54)
[2019-01-11] MEDS: LEVOTHYROXINE 75 MCG TAB PO SCH (04:28)
[2019-01-11] MEDS: MIDODRINE HCL 5 MG TAB PO SCH ×3 (09:55→17:21)
[2019-01-11] MEDS: CHOLECALCIFEROL VIT D3 1,000 UNITS TAB PO SCH (09:55)
[2019-01-11] MEDS: CYANO/VITAMIN B12 1000 MCG TAB PO SCH (09:55)
[2019-01-11] MEDS: GLUCOSAMINE SULF 500 MG CAP PO SCH (09:55)
[2019-01-11] MEDS: PRESERVISION AREDS2 FORMULA EYE VIT 1 EACH PO SCH (09:55)
[2019-01-11] MEDS: PANTOPRAZOLE SODIUM 40 MG VIAL IVP SCH ×2 (09:55→21:04)
[2019-01-11] MEDS: Sevelamer Carbonate [Renvela] 800MG TAB PO SCH ×4 (09:57→17:21)
--- NOTE | 2019-01-11 10:34 | SOAPPROG ---
SOAP Progress Note Assessment/Plan: Assessment: ESRD, HD today, I still can't feel thrill or hear a bruit over her AVF, doppler yesterday showed clot at the anastamosis, heparin last night, fistulagram later today followed by dialysis today, likely again tomorrow widely metastatic breast cancer anemia, multifactorial: cancer, ESRD, + FOB Klebsiella bacteremia, sensitive to Levaquin, looks like urine source Plan: HD today if we are able to access her AVF, if can't get AVF open will need a catheter continue antibiotics with widely metastatic breast cancer ? palliative care, nice discussion with patient and family about limits of care. discussed what from w/d of dialysis would look like. Discussed hospice and our goals if that were to be Brittney's choice, primary goals would be comfort, cleanliness and maintaining her dignity. All questions answered to their satisfaction 01/10/19 11:18 01/11/19 10:30 Subjective: Didn't sleep well last night no cp sob nausea or vomiting mouth feels dry still with abd pain when palpated spirits pretty good today, she would joke with me Objective: Vital Signs Temp Pulse Resp BP Pulse Ox 36.9 C 81 15 98/47 L 93 01/11/19 08:41 01/11/19 08:41 01/11/19 08:41 01/11/19 08:41 01/11/19 08:41 Laboratory Results 01/11/19 08:40 01/10/19 01/11/19 01/12/19 05:59 05:59 05:59 Intake Total 1400 400 Output Total 20 330 Balance 1380 70 PT 13.5 SEC (12.0-15.0) 01/10/19 18:35 INR 1.07 (0.83-1.16) 01/10/19 18:35 Physical Exam - Physical Exam General Appearance: alert, other (ill appearing) Neck: normal inspection Respiratory: rhonchi, other (occasional basilar rales), No wheezing, No pleural rub Cardiac/Chest: regular rate, rhythm, No edema, No friction rub Abdomen: other (tender, mod distended) Extremities: other (still no bruit or thrill over AVF) Neuro/Psych: alert, oriented x 3 ICD10 Worksheet Patient Problems: Problems Problem Status Onset Abdominal pain Acute Acute gallstone pancreatitis Acute Ureteral obstruction, right Acute
[2019-01-11] MEDS ORDERED: IOPAMIDOL (ISOVUE-300) 100 ML BTL ONE ×2 (10:40→13:32)
[2019-01-11] MEDS ORDERED: FLUMAZENIL 0.5 MG/5 ML MDV IVP PRN (10:40)
[2019-01-11] MEDS ORDERED: NALOXONE HCL 0.4 MG/ML INJ IVP PRN (10:40)
[2019-01-11] MEDS ORDERED: MIDAZOLAM 2 MG/2 ML VIAL IVP PRN (10:40)
[2019-01-11] MEDS ORDERED: ALTEPLASE 2 MG VIAL ONE (10:40)
[2019-01-11] MEDS ORDERED: fentaNYL 100 MCG/2 ML INJ IVP PRN (10:40)
[2019-01-11] MEDS ORDERED: NS 1,000 ML IV SCH (10:45)
--- NOTE | 2019-01-11 12:27 | SOAPPROG ---
[facility] Progress Note Assessment/Plan: Assessment: 1. ESRF, on dialysis 2. 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 Chemo, usually Carbo/Etoposide has reasonable response rates but few cures, age , performance status and HD are all issues. 01/11/19 12:23 Objective: Vital Signs Temp Pulse Resp BP Pulse Ox 98.4 F 83 15 103/39 L 94 01/11/19 08:41 01/11/19 12:20 01/11/19 12:20 01/11/19 12:20 01/11/19 12:20 Laboratory Results 01/11/19 08:40 01/11/19 08:40 01/10/19 01/11/19 01/12/19 05:59 05:59 05:59 Intake Total 1400 400 Output Total 20 330 Balance 1380 70 PT 13.5 SEC (12.0-15.0) 01/10/19 18:35 INR 1.07 (0.83-1.16) 01/10/19 18:35 ICD10 Worksheet Patient Problems: Problems Problem Status Onset Abdominal pain Acute Acute gallstone pancreatitis Acute Ureteral obstruction, right Acute
[2019-01-11] MEDS ORDERED: HEPARIN 10,000 UNIT/10 ML MDV (1,000 UNIT/ML) IVP ONE (12:52)
--- NOTE | 2019-01-11 12:55 | HOSPPROG ---
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 ASSESSMENT/PLAN: Sepsis, likely GI/ source Klebsiella bacteremia Cardiac murmur -IV Abx, low rate IVF. -Checked echo to r/o cardiac vegetations, none noted Acute GIB -appears resolved -Hgb is stable despite starting Heparin -cont serial H/H while on Heparin. Acute blood loss anemia -GI consulted - recs appreciated -Following H/H - stable. -Transfuse 1u PRBC if Hgb drops < 7. Hypotension -likely 2/2 sepsis/GIB. -low rate IV fluids. 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 FU Path. -Consulted Palliative Care -Onc consulted - recs appreciated. -FU lab studies. ESRD on HD, MWF -Needs HD. Fistulogram today followed by HD. -Nephrology following Clotted Fistula: US 01/10 c/w non occlusive thrombosis; fistula at risk for complete occlusion. Heparin started. Will have Fistulogram today. Chronic anemia Hyponatremia, mild -Nephro recs appreciated. Generalized weakness Loss of appetite Fatigue -2/2 above pathologic processes. -PT/ISU. VTE prophylaxis: SCDs. Code Status: Full code Status: Inpatient for > 2 midnight stay. 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 On 4 Liters O2 but stable. Will have Fistulogram later today. No e/o ongoing GIB Objective: Vital Signs Temp Pulse Resp BP Pulse Ox 36.9 C 88 15 94/41 L 93 01/11/19 08:41 01/11/19 12:45 01/11/19 12:45 01/11/19 12:45 01/11/19 12:45 Laboratory Results 01/11/19 08:40 01/11/19 08:40 01/10/19 01/11/19 01/12/19 05:59 05:59 05:59 Intake Total 1400 400 Output Total 20 330 Balance 1380 70 PT 13.5 SEC (12.0-15.0) 01/10/19 18:35 INR 1.07 (0.83-1.16) 01/10/19 18:35 - Physical Exam Constitutional: no apparent distress Eyes: PERRL, EOMI Ears, Nose, Mouth, Throat: moist mucous membranes, hearing normal Cardiovascular: regular rate and rhythym, No edema Respiratory: no respiratory distress, reduced air movement Gastrointestinal: normoactive bowel sounds, soft, non-tender abdomen Skin: warm Neurologic: AAOx3 Psychiatric: interacting appropriately, not anxious, not encephalopathic Lymph, Heme, Immunologic: No petechiae ICD10 Worksheet Patient Problems: Problems Problem Status Onset Abdominal pain Acute Acute gallstone pancreatitis Acute Ureteral obstruction, right Acute
--- NOTE | 2019-01-11 15:04 | PDRADPN ---
Radiology Procedure Note Date of Procedure: 01/11/19 Radiologist: Madhu Linares Anesthesia: IV Sedation Pre-op Diagnosis: AV Fistula clot Post-op Diagnosis: Same Procedure: Recanalization, lysis, venoplasty Inf/Abcess present in the surg proc area at time of surgery?: No
--- NOTE | 2019-01-11 15:04 | PDPROPOC ---
Sedation Plan of Care ASA Classification: ASA 3 Mallampati Score: Class 2 Mallampati Reference Image:
--- NOTE | 2019-01-11 17:30 | ASMTCMCOM ---
CM Note CM Note Notes: Pt reviewed in rounds. Pt continues on IV antibiotics, and having Pain and nausea. Pall Consult placed and scene by Annie. CM available for needs. Plan: Likely [facility] RN Date Signed: 01/11/2019 05:30 PM Electronically Signed By:Yokasta Nelson
[2019-01-11] MEDS ORDERED: MIDODRINE HCL 10 MG TAB PO PRN (22:17)
[2019-01-11] MEDS ORDERED: ALBUMIN 25% 100 ML IV PRN (22:18)
[2019-01-12] MEDS: HYDROmorphONE/DILAUDID 1 MG/ML INJ IVP PRN ×3 (01:47→23:59)
[2019-01-12] MEDS: ONDANSETRON 4 MG/2 ML VIAL IVP PRN ×2 (04:08→09:00)
[2019-01-12] MEDS: oxyCODONE IR 5 MG TAB PO PRN (04:08)
[2019-01-12] MEDS: LEVOTHYROXINE 75 MCG TAB PO SCH (04:08)
[2019-01-12 04:59] LABS: PLATELET COUNT 140 10^3/uL (150-400)
--- NOTE | 2019-01-12 05:48 | HOSPPROG ---
Hospitalist Progress Note Assessment/Plan: XC: Hgb 8.5->6.8 overnight; patient exhibiting no signs of bleeding at this moment and VS are stable. She is on a heparin drip for clotted fistula. I will place heparin on hold and transfuse a unit of pRBC. If post-transfusion CBC increases appropriately and patient remains hemodynamically stable, then we can attempt to restart heparin drip. Objective: Vital Signs Temp Pulse Resp BP Pulse Ox 37.4 C 91 20 100/44 L 90 L 01/12/19 03:22 01/12/19 03:22 01/12/19 03:22 01/12/19 03:22 01/12/19 03:22 Microbiology 01/08/19 18:58 Urine Culture - Final Urine,Clean Catch Three [place] Types Laboratory Results 01/12/19 04:30 01/12/19 04:30 01/10/19 01/11/19 01/12/19 05:59 05:59 05:59 Intake Total 1400 400 800 Output Total 20 330 Balance 1380 70 800 PT 13.5 SEC (12.0-15.0) 01/10/19 18:35 INR 1.07 (0.83-1.16) 01/10/19 18:35 ICD10 Worksheet Patient Problems: Problems Problem Status Onset Acute gallstone pancreatitis Acute Abdominal pain Acute Ureteral obstruction, right Acute
[2019-01-12] MEDS: MIDODRINE HCL 5 MG TAB PO SCH ×3 (08:04→17:58)
[2019-01-12] MEDS: PANTOPRAZOLE SODIUM 40 MG VIAL IVP SCH ×2 (08:05→21:27)
[2019-01-12] MEDS: Sevelamer Carbonate [Renvela] 800MG TAB PO SCH ×3 (08:28→21:34)
--- NOTE | 2019-01-12 09:38 | SOAPPROG ---
SOAP Progress Note Assessment/Plan: Assessment: ESRD, HD yesterday, plan on tomorrow as well, today I can feel thrill and hear a bruit over her AVF, doppler 01/10/19 showed clot at the anastamosis, heparin last night, fistulagram opened AVF 01/11/19, successful HD after widely metastatic breast cancer anemia, multifactorial: cancer, ESRD, + FOB, transfusion 01/12/19 Klebsiella bacteremia, sensitive to Levaquin, looks like urine source Plan: HD tomorrow if Brittney wishes to continue with HD Palliative care conference with family later today continue antibiotics with widely metastatic breast cancer nice discussion with patient and family about limits of care 01/11/19. discussed what from w/d of dialysis would look like. Discussed hospice and our goals if that were to be Brittney's choice , primary goals would be comfort, cleanliness and maintaining her dignity. All questions answered to their satisfaction 01/10/19 11:18 01/11/19 10:30 01/12/19 09:34 Subjective: tired cough, unable to bring up phlegm, consider more aggressive pulmonary toilet no cp, some SOB no nausea did have vomiting earler today, sounds more post tussive than GI related doesn't remember having HD yesterday no sig pain didn't sleep well last night Objective: Vital Signs Temp Pulse Resp BP Pulse Ox 36.8 C 92 16 86/36 L 93 01/12/19 08:00 01/12/19 08:00 01/12/19 08:00 01/12/19 08:00 01/12/19 08:00 Microbiology 01/08/19 18:58 Urine Culture - Final Urine,Clean Catch Three [place] Types Laboratory Results 01/12/19 04:30 01/12/19 04:30 01/11/19 01/12/19 01/13/19 05:59 05:59 05:59 Intake Total 400 1050 Output Total 330 Balance 70 1050 PT 13.5 SEC (12.0-15.0) 01/10/19 18:35 INR 1.07 (0.83-1.16) 01/10/19 18:35 Physical Exam - Physical Exam General Appearance: other (ill appearing) Neck: normal inspection Respiratory: rales, wheezing, No pleural rub Cardiac/Chest: regular rate, rhythm, edema, No friction rub Abdomen: other (bs+, tender, mild/mod distension) Skin: warm/dry Extremities: swelling Neuro/Psych: alert, oriented x 3 ICD10 Worksheet Patient Problems: Problems Problem Status Onset Abdominal pain Acute Acute gallstone pancreatitis Acute Ureteral obstruction, right Acute
[2019-01-12] MEDS ORDERED: MIDODRINE HCL 5 MG TAB PO ONE (09:58)
[2019-01-12] MEDS: PROMETHAZINE HCL 25 MG/ML INJ IVP PRN (10:01)
--- NOTE | 2019-01-12 11:40 | SOAPPROG ---
SOAP Progress Note Assessment/Plan: Assessment: 1. ESRF, on dialysis 2. History breast cancer Path is a high grade neuroendocrine tumor, C/W small cell lung TTF1 positive Plan:Palliative care conference today, discuss options at length. Chemo, usually Carbo/Etoposide has reasonable response rates but few cures, age, performance status and HD are all issues.I would strongly recommend hospice care , duration 40 minutes. 01/11/19 12:23 01/12/19 11:38 Subjective: Feels poorly, lethargic, some pain Objective: Vital Signs Temp Pulse Resp BP Pulse Ox 98.3 F 83 12 86/39 L 91 L 01/12/19 08:00 01/12/19 10:40 01/12/19 10:40 01/12/19 10:40 01/12/19 10:40 Microbiology 01/08/19 18:58 Urine Culture - Final Urine,Clean Catch Three [place] Types Laboratory Results 01/12/19 04:30 01/12/19 04:30 01/11/19 01/12/19 01/13/19 05:59 05:59 05:59 Intake Total 400 1050 Output Total 330 Balance 70 1050 PT 13.5 SEC (12.0-15.0) 01/10/19 18:35 INR 1.07 (0.83-1.16) 01/10/19 18:35 ICD10 Worksheet Patient Problems: Problems Problem Status Onset Abdominal pain Acute Acute gallstone pancreatitis Acute Ureteral obstruction, right Acute
[2019-01-12] MEDS: PRESERVISION AREDS2 FORMULA EYE VIT 1 EACH PO SCH (11:43)
[2019-01-12] MEDS: CHOLECALCIFEROL VIT D3 1,000 UNITS TAB PO SCH (11:43)
[2019-01-12] MEDS: CYANO/VITAMIN B12 1000 MCG TAB PO SCH (11:43)
[2019-01-12] MEDS: GLUCOSAMINE SULF 500 MG CAP PO SCH (11:43)
--- NOTE | 2019-01-12 15:02 | ASMTCMCOM ---
CM Note CM Note Notes: Patient plan of care reviewed in am rounds. Patient status tenuous at this time. History significant for cancer and sepsis. receiving blood this am now vomiting blood. B/P decreasing. Palliative care consult done. Code status changed to DNR. Hospice recommendation per physician. CM to follow. plan: TBD Date Signed: 01/12/2019 03:00 PM Electronically Signed By:Ena Rivas RN
--- NOTE | 2019-01-12 16:46 | ASMTCMCOM ---
CM Note CM Note Notes: Family informed this CM that they wish to pursue in home hospice care at this point. Call to Lora Wagner at [facility] to inform her of the family decision . Informed Dr. Agrawal and order for hospice placed. Spoke with Phuong who will contact family tonight to enroll patient and get equipment in place. CM to follow for needs. Plan: Dc to home with hospice. Date Signed: 01/12/2019 04:45 PM Electronically Signed By:Ena Rivas RN
--- NOTE | 2019-01-12 17:34 | HOSPPROG ---
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 ASSESSMENT/PLAN: Sepsis, likely GI/ source Klebsiella bacteremia Cardiac murmur -IV Abx, low rate IVF. -Checked echo to r/o cardiac vegetations, none noted Acute GIB, recurrent -Hgb is low. The patient is symptomatic, has low blood pressure. Currently getting transfused but BP still in the 80's systolic. Feels weak. Provided additional Midodrine which improved BP -stop Heparin -cont transfusion Acute blood loss anemia -GI consulted - recs appreciated -Following H/H - stable. -Transfuse 1u PRBC if Hgb drops < 7. Hypotension -likely 2/2 sepsis/GIB. -low rate IV fluids. 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 FU Path. -Consulted Palliative Care -Onc consulted - recs appreciated. -FU lab studies. ESRD on HD, MWF -Needs HD. Fistulogram today followed by HD. -Nephrology following Clotted Fistula: US 01/10 c/w non occlusive thrombosis; fistula at risk for complete occlusion. Heparin started. Will have Fistulogram today. Chronic anemia Hyponatremia, mild -Nephro recs appreciated. Generalized weakness Loss of appetite Fatigue -2/2 above pathologic processes. -PT/ISU. VTE prophylaxis: SCDs. Code Status: Full code Status: Inpatient for > 2 midnight stay. Plan per above: The pt is very ill. She has a palliative care meeting today. She is not medically stable. She will likely transition to hospice later today. Currently she remains a full code. Have provided Midodrine per above. Cont PRBC transfusion. She likely has an active GIB. Will await decision regarding hospice. Make NPO now. monitor BP. May need further intervention pending decision to pursue hospice. 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 somewhat confused. on 5 L o2. BP is soft. Feels weak Objective: Vital Signs Temp Pulse Resp BP Pulse Ox 36.7 C 92 18 104/60 93 01/12/19 13:25 01/12/19 16:00 01/12/19 16:00 01/12/19 16:00 01/12/19 16:00 Microbiology 01/08/19 18:58 Urine Culture - Final Urine,Clean Catch Three [place] Types Laboratory Results 01/12/19 14:45 01/12/19 04:30 01/11/19 01/12/19 01/13/19 05:59 05:59 05:59 Intake Total 400 1050 Output Total 330 Balance 70 1050 PT 13.5 SEC (12.0-15.0) 01/10/19 18:35 INR 1.07 (0.83-1.16) 01/10/19 18:35 - Physical Exam Constitutional: no apparent distress Eyes: PERRL, EOMI Ears, Nose, Mouth, Throat: moist mucous membranes, hearing normal, ears appear normal Cardiovascular: regular rate and rhythym, no murmur, rub, or gallop Respiratory: reduced air movement Gastrointestinal: normoactive bowel sounds, soft, non-tender abdomen Skin: warm Musculoskeletal: generalized weakness Neurologic: No AAOx3 Psychiatric: interacting appropriately, not anxious Lymph, Heme, Immunologic: No petechiae ICD10 Worksheet Patient Problems: Problems Problem Status Onset Abdominal pain Acute Acute gallstone pancreatitis Acute Ureteral obstruction, right Acute
[2019-01-12] MEDS: levOFLOXACIN 500 MG/DEXTROSE 100 ML IV SCH (21:27)
[2019-01-13] MEDS: PROMETHAZINE HCL 25 MG/ML INJ IVP PRN
[2019-01-13 04:37] LABS: PLATELET COUNT 133 10^3/uL (150-400)
[2019-01-13] MEDS: LEVOTHYROXINE 75 MCG TAB PO SCH (07:21)
[2019-01-13] MEDS: ONDANSETRON 4 MG/2 ML VIAL IVP PRN (07:49)
[2019-01-13] MEDS: HYDROmorphONE/DILAUDID 1 MG/ML INJ IVP PRN (07:50)
[2019-01-13] MEDS: MIDODRINE HCL 5 MG TAB PO SCH ×2 (07:58→12:58)
[2019-01-13] MEDS: PANTOPRAZOLE SODIUM 40 MG VIAL IVP SCH (10:17)
[2019-01-13] MEDS: CYANO/VITAMIN B12 1000 MCG TAB PO SCH (10:17)
[2019-01-13] MEDS: HYDROmorphONE/DILAUDID 2 MG TAB PO PRN ×3 (10:17→13:56)
[2019-01-13] MEDS: CHOLECALCIFEROL VIT D3 1,000 UNITS TAB PO SCH (10:17)
[2019-01-13] MEDS: GLUCOSAMINE SULF 500 MG CAP PO SCH (10:18)
[2019-01-13 11:12] VITALS: BP 101/50
[2019-01-13] MEDS: oxyCODONE IR 5 MG TAB PO PRN (11:43)
[2019-01-13] MEDS: Sevelamer Carbonate [Renvela] 800MG TAB PO SCH (12:09)
[2019-01-13] MEDS: PRESERVISION AREDS2 FORMULA EYE VIT 1 EACH PO SCH (12:10)
[2019-01-13] MEDS: ONDANSETRON DISINTEGRATING 4 MG TAB PO PRN (12:40)
--- NOTE | 2019-01-13 13:04 | PDIAF ---
- Diagnosis Diagnosis: melena Code Status: Do Not Resuscitate - Medication Management Discharge Medications: electronically signed and located in the Home Medication List. - Orders Services needed: Home Care, Registered Nurse, Physical Therapy, Occupational Therapy Home Care Face to Face: I certify that this patient was under my care and that I had the required [id number] encounter meeting the encounter requirements on the discharge day. My findings support the fact that the patient is homebound as defined in Home Care Face to Face Continued: CMS Chapter 7 Medicare Benefits Manual 30.1.1 , The condition of the patient is such that there exists a normal inability to leave home and consequently, leaving home would require a considerable and taxing effort. Isolation Type: Contact Isolation Diet Recommendation: no restrictions on diet Diet Texture: Regular Texture Diet Additional Instructions: Activity: as tolerated - Follow Up Care Current Providers and Referrals: Sue Lee MD [Primary Care Provider] - As per Instructions
--- NOTE | 2019-01-13 13:08 | SOAPPROG ---
SOAP Progress Note Assessment/Plan: Assessment: ESRD, HD yesterday, plan on tomorrow as well, today I can feel thrill and hear a bruit over her AVF, doppler 01/10/19 showed clot at the anastamosis, heparin last night, fistulagram opened AVF 01/11/19, successful HD after widely metastatic breast cancer anemia, multifactorial: cancer, ESRD, + FOB, transfusion 01/12/19 Klebsiella bacteremia, sensitive to Levaquin, looks like urine source Family has decided on home with hospice and no more dialysis Plan: Home with hospice Palliative care conference with family yesterday discontinue antibiotics with widely metastatic breast cancer nice discussion with patient and family about limits of care 01/11/19. discussed what from w/d of dialysis would look like. Discussed hospice and our goals if that were to be Brittney's choice , primary goals would be comfort, cleanliness and maintaining her dignity. All questions answered to their satisfaction 01/10/19 11:18 01/11/19 10:30 01/12/19 09:34 01/13/19 13:06 Subjective: lots of pain earlier, resting now sister at bedside, all questions answered home with hospice, perhaps later today no more HD Renal signing off Objective: Vital Signs Temp Pulse Resp BP Pulse Ox 36.6 C 81 16 101/50 L 92 01/13/19 11:09 01/13/19 11:09 01/13/19 11:09 01/13/19 11:09 01/13/19 11:09 Laboratory Results 01/13/19 04:10 01/13/19 04:10 01/12/19 01/13/19 01/14/19 05:59 05:59 05:59 Intake Total 1050 250 Balance 1050 250 PT 13.5 SEC (12.0-15.0) 01/10/19 18:35 INR 1.07 (0.83-1.16) 01/10/19 18:35 Physical Exam - Physical Exam General Appearance: other (resting) Neck: normal inspection Respiratory: other (bilateral rales and rhonchi) ICD10 Worksheet Patient Problems: Problems Problem Status Onset Abdominal pain Acute Acute gallstone pancreatitis Acute Ureteral obstruction, right Acute
--- NOTE | 2019-01-13 13:12 | PDDCSUM ---
Discharge Summary Discharge Summary: HPI/Hospital Course The patient is a 78-year-old female with PMH breast cancer, ESRD on HD who was admitted for sepsis and acute abdominal pain and melena-was found to have metastatic ovarian masses now found to be lung cancer. She has ESRD and her hospitalization was complicated by occluded fistula which required IR intervention. She also had GI bleed and after starting AC she started to have further bleeding. It is likely that her fistula has occluded again. She did not tolerate dialysis as her BP was low. She began developing pulmonary edema. She is very weak. She is malnourished. Given her multiple medical problems and acute presentation/exacerbation of many of these, hospice was decided upon. She is being d/c with home hospice. 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 ESRD on HD Clotted Fistula Chronic anemia Hyponatremia Generalized weakness Loss of appetite Fatigue Exam: NAD AAO RRR DECREASED LUNG SOUNDS S/NT/ND MEDS: SEE MED REC TOTAL TIME SPENT ON D/C IS 40 MIN
--- NOTE | 2019-01-13 13:13 | ASMTLACE ---
LACE Length of stay for Answers: 4-6 days current admission Acuity / Level of Answers: Yes Care: Did the patient have an inpatient admission? Comorbidities - select Answers: Any tumor (including all that apply lymphoma or leukemia) Moderate or severe liver or renal disease Other Notes: Hypothyroid; HTN # of Emergency department Answers: 1-2 visits in the last 6 months Score: 15 Date Signed: 01/13/2019 01:12 PM Electronically Signed By:Ena Rivas RN
[2019-01-13] MEDS ORDERED: HYDROmorphONE/DILAUDID 4 MG TAB PO ONE (14:21)
--- NOTE | 2019-01-13 16:38 | ASDISCHSUM ---
Discharge Information Plan Status:Hospice-Home Medically Cleared to Leave:01/13/2019 Discharge Date:01/13/2019 02:21 PM D/C Disposition:Hospice Home ADT D/C Disposition:Hospice Home Projected Discharge Date:01/11/2019 11:00 AM Transportation at D/C: Discharge Delay Reason: Follow-Up Date:01/11/2019 11:00 AM Discharge Slot: Final Diagnosis: Placement Information Referral Type:*Home Health Care Services Referral ID:[id number] Provider Name: Address 1: Phone Number: Address 2: Fax Number: City: Selection Factors: State: Referral Type:Palliative Care Referral ID:[id number] Provider Name: Address 1: Phone Number: Address 2: Fax Number: City: Selection Factors: State: Referral Type:*Hospice Referral ID:[id number] Provider Name:[facility] Address 1:[address] Phone Number: Address 2: Fax Number: [facility]:[place] Selection Factors: State:[place] Patient Contact Information Contact Name:OBINNA Relationship: Address:[address] Work Phone: City:[facility] Phone: [facility]/Zip Code:[place] [address] Email: Financial Information Financial Class:Medicare Advantage Plans Primary Plan Desc:[employer]ID[employer]BRECHT MEDICARE Primary Plan Number:[id number] Secondary Plan Desc: Secondary Plan Number: Assessment Information LACE LACE Length of stay for Answers: 4-6 days current admission Acuity / Level of Answers: Yes Care: Did the patient have an inpatient admission? Comorbidities - select Answers: Any tumor (including all that apply lymphoma or leukemia) Moderate or severe liver or renal disease Other Notes: Hypothyroid; HTN # of Emergency department Answers: 1-2 visits in the last 6 months Score: 15 Date Signed: 01/13/2019 01:12 PM Electronically Signed By:Ena Rivas RN [facility] CM Progress Note CM Note CM Note Notes: 01/09/2019 Case Management Note Pt admitted for sepsis, acute abdominal pain and melena. Pt has history of end stage renal disease on HD and breast cancer. 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 Met w/pt, son Zaheer [phone] and sister Hanna [phone]. Pt Titi [phone] was at home after visiting pt earlier in the day. Pt lives with her and has supportive family nearby. Pt has HD on MWF at [facility] on [address]. Pt or sister transport. If pt requires IV abx at d/c, case management to check if [facility] can administer antibiotics after dialysis. PT recommending home care. Pt in agreement. Provided home care list. Pt chose [facility]. Faxed referral. Confirmed acceptance on the phone. Discussed palliative order w/Cody from Palliative Team. Cody to meet w/pt tomorrow. Case Management d/c poc: home with and [facility] RN PT. Resume dialysis at [facility]. Discharge antibiotic needs to be determined. Case Management to follow. Date Signed: 01/09/2019 03:31 PM Electronically Signed By:Tammie Schumacher RN [facility] CM Progress Note CM Note CM Note Notes: Pt discussed in rounds and Palliative care Cody saw Pt today. Pt very fatigued. CM available for needs. PLAN: Likely discharge home with [facility] PT, RN, Date Signed: 01/10/2019 04:36 PM Electronically Signed By:Yokasta Nelson [facility] CM Progress Note CM Note CM Note Notes: Pt reviewed in rounds. Pt continues on IV antibiotics, and having Pain and nausea. Pall Consult placed and scene by Annie. CM available for needs. Plan: Likely [facility] Date Signed: 01/11/2019 05:30 PM Electronically Signed By:Yokasta Nelson [facility] CM Progress Note CM Note CM Note Notes: Patient plan of care reviewed in am rounds. Patient status tenuous at this time. History significant for cancer and sepsis. receiving blood this am now vomiting blood. B/P decreasing. Palliative care consult done. Code status changed to DNR. Hospice recommendation per physician. CM to follow. plan: TBD Date Signed: 01/12/2019 03:00 PM Electronically Signed By:Ena Rivas RN [facility] CM Progress Note CM Note CM Note Notes: Family informed this CM that they wish to pursue in home hospice care at this point. Call to Lora Wagner at [facility] to inform her of the family decision . Informed Dr. Agrawal and order for hospice placed. Spoke with [facility] who will contact family tonight to enroll patient and get equipment in place. CM to follow for needs. Plan: Dc to home with hospice. Date Signed: 01/12/2019 04:45 PM Electronically Signed By:Ena Rivas RN Intervention Information
== END 2019-01-13 14:21 | disposition hospice, home (50) | DRG 871 ==
LOC: F1N 16:41
PROVIDERS: ADMIT Internal Medicine; ATTEND Internal Medicine
PROC: 0JB73ZX Excision of Back Subcutaneous Tissue and Fascia, Percutaneous Approach, Diagnostic (ICD-10-PCS; 2019-01-09)
PROC: 3E06317 Introduction of Other Thrombolytic into Central Artery, Percutaneous Approach (ICD-10-PCS; 2019-01-11)
PROC: 5A1D70Z Performance of Urinary Filtration, Intermittent, Less than 6 Hours Per Day (ICD-10-PCS; principal; 2019-01-12)
PROC: 30233N1 Transfusion of Nonautologous Red Blood Cells into Peripheral Vein, Percutaneous Approach (ICD-10-PCS; 2019-01-12)
DX: A41.89 Other specified sepsis (principal); N18.6 End stage renal disease; R78.81 Bacteremia; D62 Acute posthemorrhagic anemia; K92.2 Gastrointestinal hemorrhage, unspecified; E87.1 Hypo-osmolality and hyponatremia; T82.898A Other specified complication of vascular prosthetic devices, implants and grafts, initial encounter; E46 Unspecified protein-calorie malnutrition; C79.89 Secondary malignant neoplasm of other specified sites; D63.1 Anemia in chronic kidney disease; E86.9 Volume depletion, unspecified; B96.1 Klebsiella pneumoniae [K. pneumoniae] as the cause of diseases classified elsewhere; D47.2 Monoclonal gammopathy; Z99.2 Dependence on renal dialysis; Z85.3 Personal history of malignant neoplasm of breast; Z90.10 Acquired absence of unspecified breast and nipple; Z80.3 Family history of malignant neoplasm of breast; Z80.0 Family history of malignant neoplasm of digestive organs
CPT/HCPCS: 82784-90; 85520-90; 86304-90; 86334-90; 97116-GP; 97161-GP; C1725; C1769; C1894; J1170; J1644; J1956; J2250; J2310; J2405; J2550; J2997; J3010; P9016; P9047; Q9967